=== PATIENT | female | born 1985 | race Two or more races ===

== ENCOUNTER 2024-05-23 15:24 | Inpatient (IN) | payer MEDICAID, OTHER ==
[~2024-05-23] VITALS: Ht 162.6 cm; Wt 66.0 kg
[2024-05-23] VITALS (7 sets, daily range): BP systolic 94–144; BP diastolic 53–93; PULSE 97–129; RESP 8–18; O2SAT 70–100
--- NOTE | 2024-05-23 15:32 | ED.PDOC ---
Psychiatric HPI Comments 35y F who presents to the ED for chief complaint of Overdose. Per EMS, pt was [place] down [place] for approx 20 minutes and EMS was called to the scene. EMS arrived on scene and pt was unresponsive and given 10 mg Narcan IV and pt became alert and responsive with with eyes opening. Pt fell asleep but has stable vitals with noted heart rate of 100 and o2 sat of 97% on room air upon arrival to the ED. Pt in the ED, noted to be sleeping. Pt has unknown history. Chief Complaint: overdose Time Seen by MD: 15:30 Reviewed Notes: Aircraft Avionics Technician Notes Information Source: Emergency Med Personnel Mode of Arrival: EMS Past Medical History PAST MEDICAL HISTORY: Unknown Surgical History: Unknown RN PROCEDURES History: Unknown Family History Family History: Unknown Social History Smoker: Unknown Alcohol: Unknown Drugs: Unknown Lives In: Unknown Constitutional: denies: chills, diaphoresis, fatigue, fever, malaise, sweats, weakness, others EENTM: denies: blurred vision, double vision, ear bleeding, ear discharge, ear drainage, ear pain, ear ringing, eye pain, eye redness, hearing loss, mouth pain, mouth swelling, nasal discharge, nose bleeding, nose congestion, nose pain, photophobia, tearing, throat pain, throat swelling, voice changes, others Respiratory: denies: cough, hemoptysis, orthopnea, SOB at rest, shortness of breath, SOB with excertion, stridor, wheezing, others Cardiovascular: denies: chest pain, dizzy spells, diaphoresis, Dyspnea on exertion, edema, irregular heart beat, left arm pain, lightheadedness, palpitations, PND, syncope, others Gastrointestinal: denies: abdomen distended, abdominal pain, blood streaked bowels, constipated, diarrhea, dysphagia, difficulty swallowing, hematemesis, melena, nausea, poor appetite, poor fluid intake, rectal bleeding, rectal pain, vomiting, others Genitourinary: denies: abnormal vagina bleeding, burning, dyspareunia, dysuria, flank pain, frequency, hematuria, incontinence, pain, , vagina discharge, urgency, others Neurological: denies: dizziness, fainting, headache, left sided numbness, left sided weakness, numbness, paresthesia, pre-existing deficit, right sided numbness, right sided weakness, seizure, speech problems, tingling, tremors, weakness, others Musculoskeletal: denies: back pain, gout, joint pain, joint swelling, muscle pain, muscle stiffness, neck pain, others Integumetry: denies: bruises, change in color, change in hair/nails, dryness, laceration, lesions, lumps, rash, wounds, others Allergic/Immunocompromised: denies: Difficulty Healing, Frequent Infections, Hives, Itching, others Hematologic/Lymphatic: denies: anemia, blood clots, easy bleeding, easy bruising, swollen glands, others Endocrine: denies: excessive hunger, excessive sweating, excessive thirst, excessive urination, flushing, intolerance to cold, intolerance to heat, unexplained weight gain, unexplained weight loss, others Psychiatric: denies: anxiety, bipolar disorder, depression, hopeless, panic disorder, schizophrenia, sleepless, suicidal, others All Other Systems: Reviewed and Negative Physical Exam General Appearance: Moderate Distress HEENT: Normal ENT Inspection, Pharynx Normal, TMs Normal Neck: Full Range of Motion, Non-Tender, Normal, Normal Inspection Respiratory: Chest Non-Tender, Lungs Clear, No Accessory Muscle Use, No Respiratory Distress, Normal Breath Sounds Cardiovascular: No Edema, No JVD, No Murmur, No Gallop, Normal Peripheral Pulses, Regular Rate/Rhythm Breast Exam: Deferred Gastrointestinal: Soft Genitalia: Deferred Pelvic: Deferred Rectal: Deferred Extremities: No pedal edema Musculoskeletal : Apperance: Normal Neurologic: Disoriented Cerebellar Function: NOT DONE Reflexes: NOT DONE Skin: Normal Color Peripheral Pulses: 3+ Radial (R), 3+ Radial (L) Lymphatic: No Adenopathy Was a procedure done? Was a procedure done?: No Psych Differential Dx Psych. Differential Dx: Anxiety, Depression OD Differential Dx: Drug Overdose, Accidental, Intentional, Encephalopathy, Schizophrenia, Substance Abuse, Suicidal Attempt Other Differentail Dx drug use, opioid use disorder, X-Ray, Labs, Meds, VS Patient disoriented. Possibly taken fentanyl. Narcan in the field. Mild response. Establish intravenous access. Was given fluids pain Was given Narcan. Saturation pristine on room air. 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 Psychiatric evaluation. Medical re-evaluation after more alert. Patient not responding. Intubated the patient. Time of 1ST Reevaluation: 16:00 Reevaluation 1ST: Unchanged Patient Education/Counseling: Other (pt noted sleeping, stable vitals) Family Education/Counseling: No Family Present Departure 1 Departure Time of Disposition: 15:57 Impression: Primary Impression: Metabolic encephalopathy Disposition: ADMITTED INPATIENT Admit to: Med Surg Condition: Guarded Critical Care Note Critical Care Time?: Yes (45 min-critical care time only) Stability Stability form required: No Heart Score Heart Score: Heart Score Response (Comments) Value History N/A 0 EKG N/A 0 Age N/A 0 Risk Factors N/A 0 Troponin N/A 0 Total 0 I personally scribed for ECTOR SAINI MD ([email or web address]) on 05/23/24 at 15:32. Electronically submitted by Jose Luis Garcia ([email or web address]). I personally scribed for ECTOR SAINI MD (LAVONNE) on 05/23/24 at 16:40. Electronically submitted by Ghazal Garner ([email or web address]). I personally scribed for ECTOR SAINI MD (LAVONNE) on 05/23/24 at 16:45. Electronically submitted by Ghazal Garner ([email or web address]). ECTOR SAINI MD May 23, 2024 15:32
[2024-05-23] MEDS: NALOXONE HCL 1MG/ML 2ML SYRINGE IV ONE ×2 (16:00)
[2024-05-23] MEDS: ETOMIDATE (2MG/ML) 20ML VIAL IV ONE ×2 (16:55→16:57)
[2024-05-23] MEDS: ROCURONIUM 10MG/ML 10ML VIAL IV ONE ×2 (16:55→16:58)
[2024-05-23] MEDS: MIDAZOLAM DRIP 50 mg/50mL 50 ML IV ONE ×2 (16:55)
[2024-05-23 17:05] LABS: Hematocrit 40.4 % (36.0-46.0); Hemoglobin 13.6 g/dL (12.2-16.2); Mean Corpuscular Hemoglobin 31.4 pg (28.0-32.0); Mean Corpuscular Hgb Conc. 33.6 g/dL (32.0-36.0); Mean Corpuscular Volume 93.5 fL (80.0-100.0); Platelet Count (auto) 328 10^3/uL (140-450); Red Blood Cells 4.32 10^6/uL (4.0-5.20); Red Cell Distribution Width 13.9 % (11.8-14.3); White Blood Cell 7.9 10^3/uL (4.4-10.8)
[2024-05-23 17:07] LABS: Band Neutrophils % (manual) 0; Basophils % (manual) 0 (0.0-2.0); Blast Cells 0; Metamyelocytes % 0; Myelocytes % 0; Promyelocytes % 0; Reactive Lymphocytes 0
[2024-05-23] MEDS: MIDAZOLAM DRIP 50 mg/50mL 50 ML IV SCH (17:10)
--- NOTE | 2024-05-23 17:10 | DVH ---
Exam: CT HEAD WITHOUT CONTRAST History: altered Technique: [address] images through the posterior fossa and the supratentorial compart ment were acquired without contrast and imaged using soft tissue and bone algorithms. RADIATION DOSE: DLP 1016.47 mGy.cm; CTDI vol 57.41 mGy. Comparison: None Findings: There is no evidence of an intracranial hemorrhage, acute large vessel infarct, mass effect, or midli ne shift. The calvarium, orbits, paranasal sinuses, sella, middle ears, and mastoids are unremarkable. The superficial soft tissues are within normal limits. Impression: 1. No acute intracranial abnormality.
[2024-05-23 17:11] LABS: Chloride 107 mmol/L (98-107); Sodium 141 mmol/L (136-145)
[2024-05-23 17:12] LABS: Anion Gap 10 (5-15); Carbon Dioxide 24 mmol/L (20-31)
[2024-05-23 17:13] LABS: Calcium 9.1 mg/dL (8.7-10.4)
[2024-05-23 17:18] LABS: Glucose 279 mg/dL (74-106)
--- NOTE | 2024-05-23 17:20 | DVHNC2 ---
Intubation Indication: Altered Mental Status Prep: Preoxygenation Medicated with: Other (etomidate and rocuronium) Intubation Approach: Orotracheal Notes ARIA SOUSA PRABHAKAR MD Date of Service: May 23, 2024 Billing Provider: ECTOR SAINI MD Common Visit Codes: PROCEDURE ONLY ARIA SOUSA May 23, 2024 17:20
--- NOTE | 2024-05-23 17:59 | DVH ---
CHEST RADIOGRAPH Indication:INTUBATION Technique: Single frontal view of the chest was obtained COMPARISON: None FINDINGS: Lines and Tubes: Endotracheal tube in satisfactory position. Lungs: Clear Pleura: No effusion. No pneumothorax. Cardiomediastinal contours: Unremarkable Bones: Unremarkable IMPRESSION: Endotracheal tube in satisfactory position. Air-filled distention of the stomach.
[2024-05-23 18:14] LABS: Eosinophils % (manual) 2 (0-7); Lymphocytes % (manual) 65 (10.0-50.0); Monocytes % (manual) 2 (0-12); Platelet Estimate Adequate
[2024-05-23 18:46] LABS: BUN/Creatinine Ratio 9.6 (10.0-20.0); Blood Urea Nitrogen 7 mg/dL (9-23)
[2024-05-23] MEDS: SODIUM CHLORIDE 0.9% 1,000 ML IV ONE ×2 (19:05→20:45)
--- NOTE | 2024-05-23 19:12 | DVH ---
EXAM: XY CHEST XRAY 1 VIEW CLINICAL HISTORY: IJ AND OG TUBE PLACEMENT CONFIRMATION TECHNIQUE: Single AP view of the chest WID: COMPARISON: XY CHEST PORTABLE on DOS: 05/23/24 FINDINGS: Lines and tubes: Endotracheal tube projecting 5.1 cm of the above the deloris. Right IJ central venous catheter projects over SVC. Gastric tube is seen descending beneath the level diaphragm into the sto mach and not in the field of view. Chest: The heart size and pulmonary vasculature is within normal limits. No pleural effusion, pneumothorax, or consolidation. Low lung volumes The osseous structures are grossly intact. Gas distention of the stomach. IMPRESSION: 1. Endotracheal tube , right IJ central venous catheter, and gastric tube in place as described. 2. Gas distention of the stomach.
[2024-05-23 19:26] LABS: Urine Bacteria None Seen /hpf (None Seen); Urine WBC None Seen /hpf (0 - 5)
[2024-05-23 19:39] LABS: Urine Blood Negative /uL (Negative); Urine Clarity Clear (Clear); Urine Color Colorless (Yellow); Urine Protein, UAD Negative (Negative); Urine Specific Gravity 1.006 (1.001-1.035); Urine Urobilinogen Normal (Negative); Urine pH 5.5 (5.0-9.0)
[2024-05-23 19:39] LABS: Base Excess -3.9 mmol/L (-2.0-3.0)
[2024-05-23 20:11] LABS: Amphetamine Screen, Urine Neg (NEGATIVE)
[2024-05-23 20:12] LABS: Barbiturate Scree,Urine Neg (NEGATIVE); Benzodiazephine Screen, Urine Neg (NEGATIVE); Cannabinoid Screen, Urine Neg (NEGATIVE); Cocaine Screen, Urine Neg (NEGATIVE); Opiate Scree,Urine Neg (NEGATIVE); Phencyclidine Screen, Urine Neg (NEGATIVE)
[2024-05-23] MEDS: NOREPINEPHRINE 8 MG/250ML KIT 250 ML IV ONE (20:43)
[2024-05-23] MEDS: NOREPINEPHRINE 8 MG/250ML KIT 250 ML IV SCH (21:10)
[2024-05-23] MEDS ORDERED: ONDANSETRON HCL 4 MG/2 ML VIAL IV PRN (22:15)
[2024-05-23] MEDS ORDERED: NITROGLYCERIN 0.4 MG SL TAB SL PRN (23:15)
[2024-05-23] MEDS ORDERED: MORPHINE SULFATE INJ 2 MG/ml SYRG IV PRN (23:15)
--- NOTE | 2024-05-23 23:15 | DVHHP2 ---
History of Present Illness Reason for Visit: Acute respiratory failure History of Present Illness The patient is a 35-year-old female with unknown past medical history presented to [facility] ED for evaluation of altered level of consciousness. The patient was [place] gas station for a proximally 20 minutes and EMS were called. When EMS arrived on the scene, patient was unresponsive and was given 10 mg Narcan IV with positive response and eye opening. Patient fell asleep but has stable virals en route to our facility ED. patient was seen and evaluated in the ED sleeping and was subsequently intubated, laboratory data shows WBC 7.9, platelets 328, sodium 141, potassium 4.0, BUN 7, creatinine 0.73, glucose 279, serum alcohol 553.8, blood pressure 98/53, heart rate 96, temperature 98.2 F, O2 saturation 94% on ventilator. Head CT showed no acute intracranial abnormality. Please see medication orders section in the computer. On my ass essment, patient remains fully intubated, no diaphoresis, no vomiting, no fever, no chills. Patient was admitted for further evaluation and medical management. Past Medical History EtOH Past Surgical History No past surgical history on file Family History Reviewed, noncontributory to the management of this case. Past Social History Patient was found on the street unresponsive. Review of Systems Constitutional: No: Fever, Chills, Sweats, Weakness, Malaise, Other Eyes: No: Pain, Vision change, Conjunctivae inflammation, Eyelid inflammation, Other, Redness ENT: No: Ear pain, Ear discharge, Nose pain, Nose discharge, Nose congestion, Mouth pain, Mouth swelling, Throat pain, Throat swelling, Other Respiratory: No: Cough, Dry, Shortness of breath, SOB with excertion, Wheezing, Hemoptysis, Pleuritic Pain, Sputum, Wheezing, Other Cardiovascular: No: Chest Pain, Palpitations, Orthopnea, Paroxysmal Noc. Dyspnea, Edema, Lt Headedness, Other Gastrointestinal: No: Nausea, Vomiting, Abdominal Pain, Diarrhea, Constipation, Melena, Hematochezia, Other Genitourinary: No Dysuria, No Frequency, No Incontinence, No Hematuria, No Retention, No Other Musculoskeletal: No: other, neck pain, shoulder pain, arm pain, back pain, hand pain, leg pain, foot pain Skin: No: Rash, Lesions, Jaundice, Bruising, Other Neurological: Other (Altered level of consciousness); No: Weakness, Numbness, Incoordination, Change in speech, Confusion, Seizures Allergies: Coded Allergies: NO KNOWN ALLERGIES (Unverified , 05/23/24) Medications Current Medications Medications Dose Ordered Sig/Janna Route Start Time Stop Time Status Last Admin Dose Admin Midazolam HCl 50 ml @ 1 mls/hr Q24H IV 05/23/24 19:15 05/23/24 17:10 1 MLS/HR Norepinephrine Bitartrate 250 ml @ 3.75 mls/hr Q24H IV 05/23/24 20:30 05/23/24 21:10 3.75 MLS/HR Folic Acid 1 mg/ Multivitamins 10 ml/Magnesium Sulfate 8 meq/ Thiamine HCl 100 mg/Dextrose/ Sodium Chloride 1,013.2 ml @ 125.001 mls/hr DAILY@1800 INJ 05/24/24 18:00 Acetaminophen 650 mg Q6HP PRN VA 05/23/24 22:15 Ondansetron HCl 4 mg Q4HP PRN IV 05/23/24 22:15 Enoxaparin Sodium 40 mg DAILY SC 05/24/24 10:00 Exam Vital Signs Vital Signs Date Time Temp Pulse Resp B/P (MAP) Pulse Ox O2 Delivery O2 Flow Rate FiO2 05/23/24 22:45 104 17 112/60 (77) 99 05/23/24 22:31 50 05/23/24 19:05 Mechanical Ventilator+ 05/23/24 18:47 98.2 05/23/24 16:40 6 General Appearance: Other (Fully intubated) HEENT: Atraumatic, PERRLA, EOMI, Mucous membr. moist/pink Respiratory: Normal air movement Cardiovascular: Regular rate, Normal S1, Normal S2, No murmurs Abdominal: Normal bowel sounds, Soft, No tenderness, No hepatospenomegaly, No masses Extremities: No clubbing, No cyanosis, No edema, Normal pulses, No tenderness/swelling Skin: No rashes, No breakdown, No significant lesion Neuro: Other (Generalized weakness) Psych/Mental Status: Mood NL Labs/Xrays Labs Test 05/23/24 19:10 05/23/24 18:26 05/23/24 16:23 Range/Units Urine Color Colorless Yellow Urine Clarity Clear Clear Urine pH 5.5 5.0-9.0 Urine Specific [place] 1.006 1.001-1.035 Urine Protein Negative Negative Urine Ketones Negative Negative Urine Blood Negative Negative /uL Urine Nitrite Negative Negative Urine Bilirubin Negative Negative Urine Urobilinogen Normal Negative mg/dL Urine Leukocyte Esterase Negative Negative /uL Urine RBC <1 0 - 4 /hpf Urine WBC None seen 0 - 5 /hpf Urine Squamous Epithelial Cells None seen <5 /hpf Urine Bacteria None seen None Seen /hpf Urine Glucose 4+ H Normal mg/dL Urine Opiates Screen Neg NEGATIVE Urine Fentanyl Screen Neg NEGATIVE Urine Barbiturates Screen Neg NEGATIVE Urine Phencyclidine Screen Neg NEGATIVE Urine Amphetamines Screen Neg NEGATIVE Urine Benzodiazepines Screen Neg NEGATIVE Urine Cocaine Screen Neg NEGATIVE Urine Cannabinoids Screen Neg NEGATIVE Blood Gas Specimen Type Arterial Blood Gas Sample Site Right radial Blood Gas Patient Temperature 37.0 Arterial Blood Date Drawn [id number] Arterial Blood pH 7.321 L 7.350-7.450 Arterial Blood Partial Pressure CO2 43.9 32.0-45.0 mmHg Arterial Blood Partial Pressure O2 202.8 H 83.0-108.0 mmHg Arterial Blood HCO3 22.2 21.0-28.0 mmol/L Arterial Blood Oxygen Saturation 99.5 H 94.0-98.0 % Arterial Blood Base Excess -3.9 L -2.0-3.0 mmol/L Arterial Blood Oxyhemoglobin 98.0 94.0-98.0 % Arterial Blood Carboxyhemoglobin 0.7 0.5-1.5 % Arterial Blood Methemoglobin 0.8 0.0-1.5 % Aravind Test Yes Blood Gas Total Hemoglobin 14.80 12.0-16.0 g/dL Blood Gas Set Respiration Rate 16.0 Blood Gas Modality Vent - ac FiO2 % 100.0 Blood Gas Tidal Volume 450.0 Blood Gas PEEP or CPAP 5.0 White Blood Count 7.9 4.4-10.8 10^3/uL Red Blood Count 4.32 4.0-5.20 10^6/uL Hemoglobin 13.6 12.2-16.2 g/dL Hematocrit 40.4 36.0-46.0 % Mean Corpuscular Volume 93.5 80.0-100.0 fL Mean Corpuscular Hemoglobin 31.4 28.0-32.0 pg Mean Corpuscular Hemoglobin Concent 33.6 32.0-36.0 g/dL Red Cell Distribution Width 13.9 11.8-14.3 % Platelet Count 328 140-450 10^3/uL Mean Platelet Volume 8.7 6.9-10.8 fL Neutrophils (%) (Auto) 37.0-80.0 % Lymphocytes (%) (Auto) 10.0-50.0 % Monocytes (%) (Auto) 0.0-12.0 % Basophils (%) (Auto) 0.0-2.0 % Neutrophils # (Auto) 1.6-8.6 10 ^3/uL Lymphocytes # (Auto) 0.4-5.4 10 ^3/uL Monocytes # (Auto) 0-1.3 10 ^3/uL Differential Total Cells Counted 100.0 100 Neutrophils % (Manual) 31 L 37.0-80.0 Band Neutrophils % (Manual) 0 Lymphocytes % (Manual) 65 H 10.0-50.0 Monocytes % (Manual) 2 0-12 Eosinophils % (Manual) 2 0-7 Basophils % (Manual) 0 0.0-2.0 Metamyelocytes % (manual) 0 Myelocytes % (Manual) 0 Promyelocytes % (Manual) 0 Blast Cells % (Manual) 0 Reactive Lymphocytes 0 Platelet Estimate Adequate Sodium Level 141 136-145 mmol/L Potassium Level 4.0 3.5-5.1 mmol/L Chloride Level 107 98-107 mmol/L Carbon Dioxide Level 24 20-31 mmol/L Anion Gap 10 5-15 Blood Urea Nitrogen 7 L 9-23 mg/dL Creatinine 0.73 0.550-1.02 mg/dL Glomerular Filtration Rate Calc 111 >90 mL/min BUN/Creatinine Ratio 9.6 L 10.0-20.0 Serum Glucose 279 H 74-106 mg/dL Calcium Level 9.1 8.7-10.4 mg/dL Plasma/Serum Blood Alcohol 553.8 *H <10 mg/dL PATIENT: JULIA HALL ACCT: [id number] UNIT: [id number] : 05/23/1989 LOC: ER ROOM / BED: / AGE / SEX: 35 / F ADM STATUS: REG ER SERVICE 1600 ORDERING PHYSICIAN: ECTOR SAINI MD PROCEDURE(s): HWOCT - HEAD WITHOUT CONTRAST REASON: altered ORDER NUMBER(s): [id number], ACCESSION NUMBER(s): [id number] Exam: CT HEAD WITHOUT CONTRAST History: altered Technique: [address] images through the posterior fossa and the supratentorial compartment were acquired without contrast and imaged using soft tissue and bone algorithms. RADIATION DOSE: DLP 1016.47 mGy.cm; CTDI vol 57.41 mGy. Comparison: None Findings: There is no evidence of an intracranial hemorrhage, acute large vessel infarct, mass effect, or midline shift. The calvarium, orbits, paranasal sinuses, sella, middle ears, and mastoids are unremarkable. The superficial soft tissues are within normal limits. Impression: 1. No acute intracranial abnormality. ORDERING PHYSICIAN: ECTOR SAINI MD PROCEDURE(s): CXRP - CHEST PORTABLE REASON: INTUBATION ORDER NUMBER(s): [id number], ACCESSION NUMBER(s): [id number] CHEST RADIOGRAPH Indication:INTUBATION Technique: Single frontal view of the chest was obtained COMPARISON: None FINDINGS: Lines and Tubes: Endotracheal tube in satisfactory position. Lungs: Clear Pleura: No effusion. No pneumothorax. Cardiomediastinal contours: Unremarkable Bones: Unremarkable IMPRESSION: Endotracheal tube in satisfactory position. Air-filled distention of the stomach. ORDERING PHYSICIAN: ECTOR SAINI MD PROCEDURE(s): CXR1 - CHEST XRAY 1 VIEW REASON: IJ AND OG TUBE PLACEMENT CONFIRMATION ORDER NUMBER(s): [id number], ACCESSION NUMBER(s): [id number] EXAM: XY CHEST XRAY 1 VIEW CLINICAL HISTORY: IJ AND OG TUBE PLACEMENT CONFIRMATION TECHNIQUE: Single AP view of the chest WID: COMPARISON: XY CHEST PORTABLE on DOS: 05/23/24 FINDINGS: Lines and tubes: Endotracheal tube projecting 5.1 cm of the above the deloris. Right IJ central venous catheter projects over SVC. Gastric tube is seen descen ding beneath the level diaphragm into the stomach and not in the field of view. Chest: The heart size and pulmonary vasculature is within normal limits. No pleural effusion, pneumothorax, or consolidation. Low lung volumes The osseous structures are grossly intact. Gas distention of the stomach. IMPRESSION: 1. Endotracheal tube , right IJ central venous catheter, and gastric tube in place as described. 2. Gas distention of the stomach. Assessment/Plan Assessment/Plan Metabolic encephalopathy Generalized weakness Hyperglycemia Acute respiratory failure Alcohol intoxication Altered level of consciousness Plan 1. Admit to intensive care unit 2. Breathing treatment 3. Pain control management 4. Management of fluids and electrolytes 5. Consultation for pulmonology 6. Diagnostic tests head CT 7. DVT prophylaxis on SCDs 8. Repeat labs CBC, CMP in a.m. 9. Continue with current medical management 10. Treatment plan discussed with patient and RN. Patient is fully intubated. Plan discussed with: Patient, Other (RN) My Orders Orders - NENA ART DNP Procedure Category Date Status Time * Cardiology Consult CONS 05/23/24 Transmitted 22:07 *Consult CONS 05/23/24 Transmitted / 22:07 Folic Acid... PHA 05/24/24 In Process 18:00 Acetaminophen PHA 05/23/24 In Process Suppository (Tylenol 22:15 Allergies YASMIN 05/23/24 In Process 22:07 Code Status CODE 05/23/24 Transmitted 22:07 Oxygen Per Hour RT 05/23/24 Transmitted 22:07 Ondansetron Hcl PHA 05/23/24 In Process (Zofran) 22:15 Enoxaparin Sodium PHA 05/24/24 In Process (Lovenox) 10:00 Fall Risk Precautions YASMIN 05/23/[address] 22:07 Complete Blood Count LAB 05/24/24 Verified 04:00 Comprehensive LAB 05/24/24 Verified Metabolic Panel 04:00 Npo (Nothing By DIET 05/24/24 Transmitted Mouth) Diet Breakfast Condition: Serious YASMIN 05/23/24 In Process 22:07 Sequential YASMIN 05/23/24 In Process Compression Device Problem List: (1) Metabolic encephalopathy (2) Hyperglycemia (3) Acute respiratory failure (4) Alcohol intoxication (5) Generalized weakness (6) Altered level of consciousness Date of Service: May 23, 2024 Billing Provider: NENA ART DNP Common Visit Codes: [id number] INP/OBS CARE (HIGH) NENA ART DNP May 23, 2024 23:15
[2024-05-24] VITALS (94 sets, daily range): BP systolic 100–148; BP diastolic 52–85; PULSE 88–117; RESP 14–25; TEMP 97.5–102.4; O2SAT 90–100
[2024-05-24] MEDS: fentaNYL Drip 2500mCg/250mlNS 250 ML IV ONE (03:57)
[2024-05-24] MEDS: fentaNYL Drip 2500mCg/250mlNS 250 ML IV SCH (03:57)
[2024-05-24 04:15] LABS: Basophils # (auto) 0.1 10 ^3/uL (0-0.2); Basophils % (auto) 0.5 % (0.0-2.0); Eosinophils # (auto) 0 10 ^3/uL (0-0.8); Eosinophils % (auto) 0.1 % (0.0-7.0); Hemoglobin 13.4 g/dL (12.2-16.2); Lymphocytes # (auto) 3.1 10 ^3/uL (0.4-5.4); Lymphocytes % (auto) 14.8 % (10.0-50.0); Mean Corpuscular Hemoglobin 31.4 pg (28.0-32.0); Mean Corpuscular Hgb Conc. 33.5 g/dL (32.0-36.0); Monocytes % (auto) 4.9 % (0.0-12.0); Neutrophils # (auto) 16.8 10 ^3/uL (1.6-8.6); Neutrophils % (auto) 79.7 % (37.0-80.0); Platelet Count (auto) 337 10^3/uL (140-450); Red Blood Cells 4.26 10^6/uL (4.0-5.20); Red Cell Distribution Width 14.3 % (11.8-14.3)
[2024-05-24 04:24] LABS: Alanine Aminotransferase 16 U/L (7-40); Albumin 4.1 g/dL (3.2-4.8); Alkaline Phosphatase 76 U/L (46-116); Anion Gap 11 (5-15); Aspartate Aminotransferase 18 U/L (13-40); Calcium 8.2 mg/dL (8.7-10.4); Carbon Dioxide 22 mmol/L (20-31); Chloride 110 mmol/L (98-107); Glucose 343 mg/dL (74-106); Sodium 143 mmol/L (136-145)
[2024-05-24 04:25] LABS: Bilirubin, Total 0.4 mg/dL (0.2-1.0); Total Protein 6.8 g/dL (5.7-8.2)
[2024-05-24 04:37] LABS: BUN/Creatinine Ratio 6.9 (10.0-20.0); Blood Urea Nitrogen < 5 mg/dL (9-23)
[2024-05-24] MEDS: ACETAMINOPHEN 650 MG RECT SUPP PR PRN (04:57)
[2024-05-24 07:30] LABS: Base Excess -5.6 mmol/L (-2.0-3.0)
[2024-05-24] MEDS ORDERED: DEXTROSE (50%) 50ML SYRG IV PRN (08:30)
[2024-05-24] MEDS: InsuLIN REG 1unit/0.01ml Soln (100units/ml) SC SCH (08:30)
[2024-05-24 08:39] LABS: Magnesium 1.5 mg/dL (1.6-2.6)
[2024-05-24 08:41] LABS: Phosphorus 3.5 mg/dL (2.4-5.1)
[2024-05-24] MEDS: MAGNESIUM SULFATE 1GM/100ML 100 ML IV SCH (10:00)
[2024-05-24] MEDS: ENOXAPARIN SOD 40 MG/0.4 ML SYRINGE SC SCH (10:01)
[2024-05-24 11:25] LABS: INR 1.11 (0.9-1.15); Partial Thromboplastin Time 25.9 SEC (24.5-34.5); Prothrombin Time 11.7 sec (9.3-11.8)
[2024-05-24 11:41] LABS: Lactic Acid w/Reflex 4.1 mmol/L (0.4-2.0)
[2024-05-24] MEDS: ACCU-CHEK COMFORT CURVE STRIP VI SCH (12:00)
--- NOTE | 2024-05-24 14:06 | DVHSR ---
APPROVED REPORT EXAM: Two-dimensional and M-mode echocardiogram with Doppler and color Doppler. Blood Pressure: 103/59 mmHg INDICATION Hypotension RISK FACTORS Height: 5' 4", Weight: 149 DIMENSIONS LVDd4.0 (3.8-5.7cm)LA (2D)3.2 (1.9-4.0cm)Aortic Root2.6 (2.0-3.7cm) LVDs2.7 (2.5-4.0cm)LA (MM) (1.9-4.0cm)Aortic Cusp Exc1.6 (1.5-2.0cm) EF (%) 62.0 (55-70%)Rt. Atrium3.2 (1.9-4.0cm)Asc. Aorta cm IVSd0.9 (0.7-1.1cm)RV (D) (1.8-2.4cm) PWd0.8 (0.7-1.1cm) Mitral Valve MitralMitral Stenosis E wave0.70m/sMV Mean GR.mmHg A wave0.60m/sMV Peak GR.mmHg E/A ratio1.22D MVAcm2 Aortic Valve Aortic ValveAortic Stenosis V11.00m/Jeremías Mean GR.4mmHg V21.40m/Jeremías Peak GR.9mmHg LVOT Diameter2.0 (1.8-2.4cm)Doppler AVA2.24cm2 Pulmonic Valve V20.70m/s Conclusion Normal left ventricular size and dimension. Normal left ventricular systolic function estimated ejec tion fraction 55%. Normal diastolic function Normal right ventricular size and dimension. Normal right ventricular systolic function. Normal biatrial size and dimension. Normal aortic valve structure and function. Normal mitral valve structure and function. Normal tricuspid valve structure and function. The pulmonary valve is grossly normal. No pericardial effusion.
[2024-05-24] MEDS: PIPERACILLIN-TAZOB 3.375GM 100 ML IV SCH (14:55)
[2024-05-24] MEDS: SODIUM CHLORIDE 0.9% 1,000 ML IV SCH (14:56)
--- NOTE | 2024-05-24 17:06 | DVHPN2 ---
Subjective The patient is a 35-year-old female with unknown past medical history presented to [facility] ED for evaluation of altered level of consciousness. The patient [place] station for a proximally 20 minutes and EMS were called. When EMS arrived on the scene, patient was unresponsive and was given 10 mg Narcan IV with positive response and eye opening. Patient fell asleep but has stable virals en route to our facility ED. patient was seen and evaluated in the ED sleeping and was subsequently intubated, laboratory data shows WBC 7.9, platelets 328, sodium 141, potassium 4.0, BUN 7, creatinine 0.73, glucose 279, serum alcohol 553.8, blood pressure 98/53, heart rate 96, temperature 98.2 F, O2 saturation 94% on ventilator. Head CT showed no acute intracranial abnormality. Please see medication orders section in the computer. On my assessment, patient remains fully intubated, no diaphoresis, no vomiting, no fever, no chills. Patient was admitted for further evaluation and medical management. remains intubated in ICU per nurse had elevated lactic acid this morning Changes from previous H/P or p: No Changes Eyes: No Pain, No Vision change, No Conjunctivae inflammation, No Eyelid inflammation, No Other, No Redness ENT: No Ear pain, No Ear discharge, No Nose pain, No Nose discharge, No Nose congestion, No Mouth pain, No Mouth swelling, No Throat pain, No Throat swelling, No Other Cardiovascular: No Chest Pain, No Palpitations, No Orthopnea, No Paroxysmal Noc. Dyspnea, No Edema, No Lt Headedness, No Other Respiratory: No Cough, No Dry, No Shortness of breath, No SOB with excertion, No Wheezing, No Hemoptysis, No Pleuritic Pain, No Sputum, No Other Gastrointestinal: No Nausea, No Vomiting, No Abdominal Pain, No Diarrhea, No Constipation, No Melena, No Hematochezia, No Other Genitourinary: No Dysuria, No Frequency, No Incontinence, No Hematuria, No Retention, No Other Musculoskeletal: No other, No neck pain, No shoulder pain, No arm pain, No back pain, No hand pain, No leg pain, No foot pain Skin: No Rash, No Lesions, No Jaundice, No Bruising, No Other Objective Vitals Vital Signs Date Time Temp Pulse Resp B/P (MAP) Pulse Ox O2 Delivery O2 Flow Rate FiO2 10/26/24 16:54 123/80 05/24/24 16:00 99.9 98 17 96 211.8 05/24/24 16:00 40 05/24/24 08:00 Mechanical Ventilator+ 05/23/24 16:40 6 Intake/Output Intake and Output 05/24/24 05:00 Intake Total 193.75 ml Balance 193.75 ml Intake IV Total 193.75 ml Medications Current Medications Medications Dose Ordered Sig/Janna Route Start Time Stop Time Status Last Admin Dose Admin Midazolam HCl 50 ml @ 1 mls/hr Q24H IV 05/23/24 19:15 05/24/24 16:54 15 MLS/HR Norepinephrine Bitartrate 250 ml @ 3.75 mls/hr Q24H IV 05/23/24 20:30 05/23/24 21:10 3.75 MLS/HR Folic Acid 1 mg/ Multivitamins 10 ml/Magnesium Sulfate 8 meq/ Thiamine HCl 100 mg/Dextrose/ Sodium Chloride 1,013.2 ml @ 125.001 mls/hr DAILY@1800 INJ 05/24/24 18:00 Acetaminophen 650 mg Q6HP PRN MN 05/23/24 22:15 05/24/24 04:57 650 MG Ondansetron HCl 4 mg Q4HP PRN IV 05/23/24 22:15 Enoxaparin Sodium 40 mg DAILY SC 05/24/24 10:00 05/24/24 10:01 40 MG Nitroglycerin 0.4 mg Q5MINP PRN SL 05/23/24 23:15 Morphine Sulfate 2 mg Q30M PRN IV 05/23/24 23:15 Fentanyl Citrate 250 ml @ 2.5 mls/hr Q24H IV 05/24/24 04:00 05/24/24 03:57 2.5 MLS/HR Diagnostic Test (Pha) 1 strip Q6HR 05/24/24 12:00 05/24/24 12:00 1 STRIP Insulin Human Regular Q6HR SC 05/24/24 08:30 05/24/24 12:45 8 UNITS Dextrose 50 ml UD PRN IV 05/24/24 08:30 Sodium Chloride 1,000 ml @ 150 mls/hr Q6H40M IV 05/24/24 12:45 05/24/24 14:56 150 MLS/HR Piperacillin Sod/ Tazobactam Sod 100 ml @ 25 mls/hr Q8HR IV 05/24/24 14:00 05/24/24 14:55 25 MLS/HR Laboratory Results Laboratory Tests 05/24/24 03:34 Chemistry Test 05/24/24 03:34 05/24/24 03:44 Albumin 4.1 g/dL (3.2-4.8) Calcium Level 8.2 mg/dL (8.7-10.4) L Total Protein 6.8 g/dL (5.7-8.2) Magnesium Level 1.5 mg/dL (1.6-2.6) L Phosphorus Level 3.5 mg/dL (2.4-5.1) Coagulation Test 05/24/24 10: Prothrombin Time 11.7 sec (9.3-11.8) Prothrombin Time INR 1.11 (0.9-1.15) Activated Partial Thromboplast Time 25.9 SEC (24.5-34.5) Lipid panel Test 05/24/24 03:44 Cholesterol Level 238 mg/dL (< 200) H HDL Cholesterol 56 mg/dL (40-59) Triglycerides Level 376 mg/dL (< 150) H Cardiac Markers Test 05/24/24 03:44 B-Type Natriuretic Peptide 6.89 pg/mL (0-100) LFT Test 05/24/24 03:34 Alanine Aminotransferase (ALT) 16 U/L (7-40) Alkaline Phosphatase 76 U/L (46-116) Aspartate Amino Transferase (AST) 18 U/L (13-40) Total Bilirubin 0.4 mg/dL (0.2-1.0) HgA1c, TSH Test 05/24/24 03:44 Thyroid Stimulating Hormone (TSH) 0.70 uIU/mL (0.55-4.78) Urinalysis Test 05/23/24 19:10 Urine Color Colorless (Yellow) Urine Clarity Clear (Clear) Urine pH 5.5 (5.0-9.0) Urine Specific [place] 1.006 (1.001-1.035) Urine Protein Negative (Negative) Urine Ketones Negative (Negative) Urine Blood Negative /uL (Negative) Urine Nitrite Negative (Negative) Urine Bilirubin Negative (Negative) Urine Urobilinogen Normal mg/dL (Negative) Urine Leukocyte Esterase Negative /uL (Negative) Urine RBC <1 /hpf (0 - 4) Urine WBC None seen /hpf (0 - 5) Urine Squamous Epithelial Cells None seen /hpf (<5) Urine Bacteria None seen /hpf (None Seen) Urine Glucose 4+ mg/dL (Normal) H Blood Gas Results Test 05/23/24 18:26 05/24/24 07:13 Arterial Blood pH 7.321 (7.350-7.450) 7.329 (7.350-7.450) FiO2 % 100.0 40.0 Microbiology Microbiology Date/Time Source Procedure Growth Status 05/24/24 04:30 Nose MRSA Screen - Final Complete Assessment/Plan Assessment/Plan Metabolic encephalopathy Generalized weakness Hyperglycemia Acute respiratory failure Alcohol intoxication Altered level of consciousness Plan sepsis workup including blood, and urine cx IV zosyn monitor labs daily vent management per ICU Critical care time including discussion with providers, nursing and patient care is 50 minutes Plan discussed with: Spouse My Orders Orders - ROSHAN RUIZ MD Procedure Category Date Status Time Glucose Blood PHA 05/24/24 In Process (Accu-Chek Comfort 12:00 Insulin R (Human) PHA 05/24/24 In Process (Insulin R) 08:30 Dextrose 50% Syringe PHA 05/24/24 In Process 08:30 Lactic Acid W/ Reflex LAB 05/25/24 Verified Order 04:00 Blood Culture AAMIR 05/24/24 In Process 12:32 Urine Bacterial AAMIR 05/24/24 In Process Culture 15:11 Sodium Chloride 0.9% PHA 05/24/24 In Process 12:45 Piperacillin-Tazob PHA 05/24/24 In Process 3.375gm (Zosyn 3.375g 14:00 Date of Service: May 24, 2024 Billing Provider: ROSHAN RUIZ MD Common Visit Codes: [id number] CARE 30-74 MIN ROSHAN RUIZ MD May 24, 2024 17:05
--- NOTE | 2024-05-24 18:01 | DVHINCON2 ---
Date Seen: May 24, 2024 Referring Physician Deric Bloom NP Reason for Consultation Hypotension History of Present Illness Catherine Guerrero is a 39-year-old female patient who presents to the ED via EMS after being found unresponsive and gas station (patient was immediately intubated in ED. Could not obtain review of systems, obtained past medical history from father who is at bedside. Past medical history: Diabetes, hypertension, two previous admissions due to alcohol intoxication viral has never been intubated. Surgical history: Denies Family history: Mother had diabetes and sudden cardiac at age of 52 Social history: Lives with family in [place]. She is a heavy ethanol abuser, goes through binges (had stopped drinking for the last two months). Denies tobacco and other drug abuse Allergies: Denies Home medication: Metformin and antihypertensive medication which father can not recall Patient seen and examined at bedside. Could not obtain review of systems since patient is under sedation due to mechanical ventilation. Past Medical History Per HPI Past Surgical History Per HPI Family History: FH: cholecystectomy G8 FATHER FH: diabetes mellitus G8 MOTHER Tonsillitis G8 FATHER Family History Per HPI Social History Per HPI Allergies: Coded Allergies: NO KNOWN ALLERGIES (Unverified , 05/23/24) Home Meds Unable to Obtain Active Prescriptions or Reported Meds Current Medications Current Medications Medications (Trade) Dose Ordered Sig/Janna Route PRN Reason Start Time Stop Time Status Last Admin Midazolam HCl 50 ml @ 1 mls/hr Q24H IV 05/23/24 19:15 05/24/24 16:54 Norepinephrine Bitartrate 250 ml @ 3.75 mls/hr Q24H IV 05/23/24 20:30 05/23/24 21:10 Folic Acid 1 mg/ Multivitamins 10 ml/Magnesium Sulfate 8 meq/ Thiamine HCl 100 mg/Dextrose/ Sodium Chloride 1,013.2 ml @ 125.001 mls/hr DAILY@1800 INJ 05/24/24 18:00 Acetaminophen (Tylenol Suppository) 650 mg Q6HP PRN [place] PAIN SCALE 1-3 OR TEMP>100.4 05/23/24 22:15 05/24/24 17:08 Ondansetron HCl (Zofran) 4 mg Q4HP PRN IV NAUSEA / VOMITING 05/23/24 22:15 Enoxaparin Sodium (Lovenox) 40 mg DAILY SC 05/24/24 10:00 05/24/24 10:01 Nitroglycerin (Ntrostat Sublingual) 0.4 mg Q5MINP PRN SL FOR CHEST PAIN 05/23/24 23:15 Morphine Sulfate 2 mg Q30M PRN IV FOR CHEST PAIN 05/23/24 23:15 Fentanyl Citrate 250 ml @ 2.5 mls/hr Q24H IV 05/24/24 04:00 05/24/24 03:57 Diagnostic Test (Pha) (Accu-Chek Comfort Curve T) 1 strip Q6HR 05/24/24 12:00 05/24/24 12:00 Insulin Human Regular (InsuLIN R) Q6HR SC 05/24/24 08:30 05/24/24 12:45 Dextrose 50 ml UD PRN IV Blood Sugar LESS THAN 60 05/24/24 08:30 Magnesium Sulfate/ Dextrose 100 ml @ 100 mls/hr Q1HR IV 05/24/24 10:00 05/24/24 11:59 DC 05/24/24 12:39 Sodium Chloride 1,000 ml @ 150 mls/hr Q6H40M IV 05/24/24 12:45 05/24/24 14:56 Piperacillin Sod/ Tazobactam Sod 100 ml @ 25 mls/hr Q8HR IV 05/24/24 14:00 05/24/24 14:55 Review of Systems Per HPI Vital Signs Vital Signs Date Time Temp Pulse Resp B/P (MAP) Pulse Ox O2 Delivery O2 Flow Rate FiO2 05/24/24 17:15 100.8 114 17 144/81 (102) 94 213.4 05/24/24 16:00 40 05/24/24 08:00 Mechanical Ventilator+ 05/23/24 16:40 6 Physical Exam Patient lying in bed, under sedoanalgesia due to mechanical ventilation General: RASS -1, afebrile, mucosae are moist Cardiovascular: Normal S1 and S2. No murmurs, gallops or rubs Respiratory: Mechanically assisted ventilation, equal bilateral airway entree. Clear lung sounds on auscultation Abdomen: Soft, nontender, no organomegaly, normal bowel sounds MSK/skin: Mobilization of limbs cannot be evaluated. Skin is dry and warm Neurological: Orientation cannot be assessed. No apparent motor no sensitive deficits. Pupils are isocoric and reactive Labs/Diagnostic Data Labs Test 05/24/24 16:58 05/24/24 13:41 05/24/24 10:26 05/24/24 07:13 Range/Units POC Glucose 124 H 70-106 mg/dl Lactic Acid Level 4.3 *H 0.4-2.0 mmol/L Prothrombin Time 11.7 9.3-11.8 sec Prothrombin Time INR 1.11 0.9-1.15 Activated Partial Thromboplast Time 25.9 24.5-34.5 SEC Ammonia < 10 L 11-32 umol/L Troponin I High Sensitivity 11 </=34 ng/L Blood Gas Specimen Type Arterial Blood Gas Sample Site Right radial Blood Gas Patient Temperature 37.0 Arterial Blood Date Drawn [id number] Arterial Blood pH 7.329 L 7.350-7.450 Arterial Blood Partial Pressure CO2 38.5 32.0-45.0 mmHg Arterial Blood Partial Pressure O2 94.2 83.0-108.0 mmHg Arterial Blood HCO3 19.8 L 21.0-28.0 mmol/L Arterial Blood Oxygen Saturation 96.7 94.0-98.0 % Arterial Blood Base Excess -5.6 L -2.0-3.0 mmol/L Arterial Blood Oxyhemoglobin 96.2 94.0-98.0 % Arterial Blood Carboxyhemoglobin 0.1 L 0.5-1.5 % Arterial Blood Methemoglobin 0.4 0.0-1.5 % Aravind Test Modified Blood Gas Total Hemoglobin 15.50 12.0-16.0 g/dL Blood Gas Set Respiration Rate 16.0 Blood Gas Modality Vent - ac Blood Gas Spontaneous Rate 19 FiO2 % 40.0 Blood Gas Tidal Volume 450.0 Blood Gas Inspiratory Pressure 21.0 Blood Gas PEEP or CPAP 5.0 Bl Gas Inspiratory/Expiratory Ratio 1:2.2 Specimen Drawn By dorys rt Test 05/24/24 03:44 05/24/24 03:34 05/23/24 19:10 05/23/24 16:23 Range/Units Phosphorus Level 3.5 2.4-5.1 mg/dL Magnesium Level 1.5 L 1.6-2.6 mg/dL B-Type Natriuretic Peptide 6.89 0-100 pg/mL Triglycerides Level 376 H < 150 mg/dL Cholesterol Level 238 H < 200 mg/dL LDL Cholesterol 135 H < 100 mg/dL HDL Cholesterol 56 40-59 mg/dL Vitamin B12 Level 359 211-911 pg/mL Vitamin D 25-Hydroxy 37.2 30.0-100 ng/mL Thyroid Stimulating Hormone (TSH) 0.70 0.55-4.78 uIU/mL White Blood Count 21.0 #H 4.4-10.8 10^3/uL Red Blood Count 4.26 4.0-5.20 10^6/uL Hemoglobin 13.4 12.2-16.2 g/dL Hematocrit 40.0 36.0-46.0 % Mean Corpuscular Volume 94.0 80.0-100.0 fL Mean Corpuscular Hemoglobin 31.4 28.0-32.0 pg Mean Corpuscular Hemoglobin Concent 33.5 32.0-36.0 g/dL Red Cell Distribution Width 14.3 11.8-14.3 % Platelet Count 337 140-450 10^3/uL Mean Platelet Volume 8.6 6.9-10.8 fL Neutrophils (%) (Auto) 79.7 37.0-80.0 % Lymphocytes (%) (Auto) 14.8 10.0-50.0 % Monocytes (%) (Auto) 4.9 0.0-12.0 % Eosinophils (%) (Auto) 0.1 0.0-7.0 % Basophils (%) (Auto) 0.5 0.0-2.0 % Neutrophils # (Auto) 16.8 H 1.6-8.6 10 ^3/uL Lymphocytes # (Auto) 3.1 0.4-5.4 10 ^3/uL Monocytes # (Auto) 1.0 0-1.3 10 ^3/uL Eosinophils # (Auto) 0 0-0.8 10 ^3/uL Basophils # (Auto) 0.1 0-0.2 10 ^3/uL Nucleated Red Blood Cells 0.0 % Sodium Level 143 136-145 mmol/L Potassium Level 4.0 3.5-5.1 mmol/L Chloride Level 110 H 98-107 mmol/L Carbon Dioxide Level 22 20-31 mmol/L Anion Gap 11 5-15 Blood Urea Nitrogen < 5 L 9-23 mg/dL Creatinine 0.72 0.550-1.02 mg/dL Glomerular Filtration Rate Calc 110 >90 mL/min BUN/Creatinine Ratio 6.9 L 10.0-20.0 Serum Glucose 343 H 74-106 mg/dL Calcium Level 8.2 L 8.7-10.4 mg/dL Total Bilirubin 0.4 0.2-1.0 mg/dL Aspartate Amino Transferase (AST) 18 13-40 U/L Alanine Aminotransferase (ALT) 16 7-40 U/L Alkaline Phosphatase 76 46-116 U/L Total Protein 6.8 5.7-8.2 g/dL Albumin 4.1 3.2-4.8 g/dL Urine Color Colorless Yellow Urine Clarity Clear Clear Urine pH 5.5 5.0-9.0 Urine Specific [place] 1.006 1.001-1.035 Urine Protein Negative Negative Urine Ketones Negative Negative Urine Blood Negative Negative /uL Urine Nitrite Negative Negative Urine Bilirubin Negative Negative Urine Urobilinogen Normal Negative mg/dL Urine Leukocyte Esterase Negative Negative /uL Urine RBC <1 0 - 4 /hpf Urine WBC None seen 0 - 5 /hpf Urine Squamous Epithelial Cells None seen <5 /hpf Urine Bacteria None seen None Seen /hpf Urine Glucose 4+ H Normal mg/dL Urine Opiates Screen Neg NEGATIVE Urine Fentanyl Screen Neg NEGATIVE Urine Barbiturates Screen Neg NEGATIVE Urine Phencyclidine Screen Neg NEGATIVE Urine Amphetamines Screen Neg NEGATIVE Urine Benzodiazepines Screen Neg NEGATIVE Urine Cocaine Screen Neg NEGATIVE Urine Cannabinoids Screen Neg NEGATIVE Differential Total Cells Counted 100.0 100 Neutrophils % (Manual) 31 L 37.0-80.0 Band Neutrophils % (Manual) 0 Lymphocytes % (Manual) 65 H 10.0-50.0 Monocytes % (Manual) 2 0-12 Eosinophils % (Manual) 2 0-7 Basophils % (Manual) 0 0.0-2.0 Metamyelocytes % (manual) 0 Myelocytes % (Manual) 0 Promyelocytes % (Manual) 0 Blast Cells % (Manual) 0 Reactive Lymphocytes 0 Platelet Estimate Adequate Hemoglobin A1c 7.1 H <5.7 % A1C Plasma/Serum Blood Alcohol 553.8 *H <10 mg/dL Microbiology Date/Time Source Procedure Growth Status 05/24/24 04:30 Nose MRSA Screen - Final Complete Assessment Toxic encephalopathy Ethanol abuse Septic shock probably secondary to aspiration pneumonia Diabetes Hypertension Noncompliance Simple hyperglycemia (anion gap within normal limits) Plan/Recommendation Patient hypotension probably secondary to intoxication with ethanol and septic shock probably secondary to aspiration pneumonia. Echocardiogram: LVEF 55%, normal diastolic function, rest of echocardiogram within normal limits Troponin and BNP are negative Currently patient is without any IV vasopressors. IV antibiotics per hospitalist Replenish electrolytes, continue with banana bag, monitor hyperglycemia Discussed case with Dr. Wong, family and nurses: Hypotension likely secondary to septic shock due to probable aspiration pneumonia. Currently patient is with no IV vasopressors. Cardiological workup head was within normal limits. No need of any interventional cardiological workup at this time, we will sign off the case. Please reconsult if needed, thank you. Plan discussed with: Patient, Other (Father and nurses) Date of Service: May 24, 2024 Billing Provider: ROSALEE WONG MD Cardiology Common Codes: [id number] INP/OBS CARE (High), [id number] CARE 30-74 MIN ABIGAIL JOSEPH RESIDENT May 24, 2024 18:01
[2024-05-24] MEDS: FOLIC ACID 1 MG, MULTIPLE VITAMIN 10 ML, MAGNESIUM SULF SDV 50% 8 MEQ, THIAMINE INJ 100... INJ SCH (18:02)
[2024-05-25] VITALS (108 sets, daily range): BP systolic 89–128; BP diastolic 46–73; PULSE 82–107; RESP 14–20; TEMP 98.6–100.6; O2SAT 86–100
[2024-05-25 04:13] LABS: Basophils # (auto) 0.1 10 ^3/uL (0-0.2); Basophils % (auto) 0.4 % (0.0-2.0); Eosinophils # (auto) 0.1 10 ^3/uL (0-0.8); Eosinophils % (auto) 0.8 % (0.0-7.0); Hematocrit 33.9 % (36.0-46.0); Hemoglobin 11.2 g/dL (12.2-16.2); Lymphocytes # (auto) 2.4 10 ^3/uL (0.4-5.4); Lymphocytes % (auto) 14.2 % (10.0-50.0); Mean Corpuscular Hemoglobin 31.9 pg (28.0-32.0); Mean Corpuscular Hgb Conc. 33.2 g/dL (32.0-36.0); Mean Corpuscular Volume 96.1 fL (80.0-100.0); Monocytes # (auto) 0.5 10 ^3/uL (0-1.3); Monocytes % (auto) 3.1 % (0.0-12.0); Neutrophils # (auto) 13.5 10 ^3/uL (1.6-8.6); Neutrophils % (auto) 81.5 % (37.0-80.0); Platelet Count (auto) 187 10^3/uL (140-450); Red Blood Cells 3.53 10^6/uL (4.0-5.20); Red Cell Distribution Width 14.3 % (11.8-14.3); White Blood Cell 16.6 10^3/uL (4.4-10.8)
[2024-05-25 04:34] LABS: Alanine Aminotransferase 13 U/L (7-40); Albumin 3.6 g/dL (3.2-4.8); Alkaline Phosphatase 72 U/L (46-116); Anion Gap 7 (5-15); Aspartate Aminotransferase 22 U/L (13-40); Bilirubin, Total 1.1 mg/dL (0.2-1.0); Calcium 7.7 mg/dL (8.7-10.4); Carbon Dioxide 23 mmol/L (20-31); Chloride 108 mmol/L (98-107); Glucose 150 mg/dL (74-106); Magnesium 2.4 mg/dL (1.6-2.6); Potassium 3.8 mmol/L (3.5-5.1); Sodium 138 mmol/L (136-145)
[2024-05-25 04:43] LABS: BUN/Creatinine Ratio 10.4 (10.0-20.0); Blood Urea Nitrogen < 5 mg/dL (9-23)
[2024-05-25 05:07] LABS: Lactic Acid w/Reflex 2.7 mmol/L (0.4-2.0)
--- NOTE | 2024-05-25 06:06 | DVH ---
CHEST RADIOGRAPH Indication:INTUBATED Technique: Single frontal view of the chest was obtained Comparison: XY CHEST XRAY 1 VIEW on DOS: 05/23/24, XY CHEST PORTABLE on DOS: 05/23/24 IMPRESSION:Endotracheal tube tip is approximately 4 cm from the deloris. Right IJ catheter tip is in t he superior vena cava. Mild pulmonary vascular congestion. No sizable airspace opacity, effusion, or pneumothorax. Enteric tube has been removed. HS:Y
[2024-05-25 07:24] LABS: Base Excess -1.9 mmol/L (-2.0-3.0)
[2024-05-25] MEDS: chlordiazePOXIDE HCL 25 MG CAP PO PRN (15:54)
--- NOTE | 2024-05-25 17:46 | DVHPN2 ---
Subjective The patient is a 35-year-old female with unknown past medical history presented to [facility] ED for evaluation of altered level of consciousness. The patient was [place] station for a proximally 20 minutes and EMS were called. When EMS arrived on the scene, patient was unresponsive and was given 10 mg Narcan IV with positive response and eye opening. Patient fell asleep but has stable virals en route to our facility ED. patient was seen and evaluated in the ED sleeping and was subsequently intubated, laboratory data shows WBC 7.9, platelets 328, sodium 141, potassium 4.0, BUN 7, creatinine 0.73, glucose 279, serum alcohol 553.8, blood pressure 98/53, heart rate 96, temperature 98.2 F, O2 saturation 94% on ventilator. Head CT showed no acute intracranial abnormality. Please see medication orders section in the computer. On my assessment, patient remains fully intubated, no diaphoresis, no vomiting, no fever, no chills. Patient was admitted for further evaluation and medical management. remains intubated in ICU per nurse had elevated lactic acid this morning Changes from previous H/P or p: No Changes Eyes: No Pain, No Vision change, No Conjunctivae inflammation, No Eyelid inflammation, No Other, No Redness ENT: No Ear pain, No Ear discharge, No Nose pain, No Nose discharge, No Nose congestion, No Mouth pain, No Mouth swelling, No Throat pain, No Throat swelling, No Other Cardiovascular: No Chest Pain, No Palpitations, No Orthopnea, No Paroxysmal Noc. Dyspnea, No Edema, No Lt Headedness, No Other Respiratory: No Cough, No Dry, No Shortness of breath, No SOB with excertion, No Wheezing, No Hemoptysis, No Pleuritic Pain, No Sputum, No Other Gastrointestinal: No Nausea, No Vomiting, No Abdominal Pain, No Diarrhea, No Constipation, No Melena, No Hematochezia, No Other Genitourinary: No Dysuria, No Frequency, No Incontinence, No Hematuria, No Retention, No Other Musculoskeletal: No other, No neck pain, No shoulder pain, No arm pain, No back pain, No hand pain, No leg pain, No foot pain Skin: No Rash, No Lesions, No Jaundice, No Bruising, No Other Objective Vitals Vital Signs Date Time Temp Pulse Resp B/P (MAP) Pulse Ox O2 Delivery O2 Flow Rate FiO2 10/27/24 16:00 30 05/25/24 16:00 91 05/25/24 15:35 16 99/55 (70) 99 05/25/24 15:30 100.2 212.4 05/25/24 08:00 Mechanical Ventilator+ 05/23/24 16:40 6 Intake/Output Intake and Output 05/25/24 05:00 Intake Total 4395.0 ml Output Total 3500 ml Balance 895.0 ml Intake Oral 0 ml IV Total 4395.0 ml Output Urine Total 3500 ml Medications Current Medications Medications Dose Ordered Sig/Janna Route Start Time Stop Time Status Last Admin Dose Admin Midazolam HCl 50 ml @ 1 mls/hr Q24H IV 05/23/24 19:15 05/25/24 13:43 12 MLS/HR Norepinephrine Bitartrate 250 ml @ 3.75 mls/hr Q24H IV 05/23/24 20:30 05/23/24 21:10 3.75 MLS/HR Folic Acid 1 mg/ Multivitamins 10 ml/Magnesium Sulfate 8 meq/ Thiamine HCl 100 mg/Dextrose/ Sodium Chloride 1,013.2 ml @ 125.001 mls/hr DAILY@1800 INJ 05/24/24 18:00 05/25/24 17:29 125.001 MLS/HR Acetaminophen 650 mg Q6HP PRN [place] 05/23/24 22:15 05/25/24 04:22 650 MG Ondansetron HCl 4 mg Q4HP PRN IV 05/23/24 22:15 Enoxaparin Sodium 40 mg DAILY SC 05/24/24 10:00 05/25/24 09:10 40 MG Nitroglycerin 0.4 mg Q5MINP PRN SL 05/23/24 23:15 Morphine Sulfate 2 mg Q30M PRN IV 05/23/24 23:15 Fentanyl Citrate 250 ml @ 2.5 mls/hr Q24H IV 05/24/24 04:00 05/25/24 09:19 20 MLS/HR Diagnostic Test (Pha) 1 strip Q6HR 05/24/24 12:00 05/25/24 17:13 1 STRIP Insulin Human Regular Q6HR SC 05/24/24 08:30 05/25/24 05:37 2 UNITS Dextrose 50 ml UD PRN IV 05/24/24 08:30 Sodium Chloride 1,000 ml @ 150 mls/hr Q6H40M IV 05/24/24 12:45 05/25/24 17:13 150 MLS/HR Piperacillin Sod/ Tazobactam Sod 100 ml @ 25 mls/hr Q8HR IV 05/24/24 14:00 05/25/24 14:40 25 MLS/HR Chlordiazepoxide HCl 25 mg Q6HPRN PRN PO 05/25/24 13:00 05/25/24 15:54 25 MG Laboratory Results Laboratory Tests 05/25/24 03:39 Chemistry Test 05/25/24 03:39 Albumin 3.6 g/dL (3.2-4.8) Calcium Level 7.7 mg/dL (8.7-10.4) L Magnesium Level 2.4 mg/dL (1.6-2.6) Total Protein 6.0 g/dL (5.7-8.2) LFT Test 05/25/24 03:39 Alanine Aminotransferase (ALT) 13 U/L (7-40) Alkaline Phosphatase 72 U/L (46-116) Aspartate Amino Transferase (AST) 22 U/L (13-40) Total Bilirubin 1.1 mg/dL (0.2-1.0) H Urinalysis Test 05/23/24 19:10 Urine Color Colorless (Yellow) Urine Clarity Clear (Clear) Urine pH 5.5 (5.0-9.0) Urine Specific [place] 1.006 (1.001-1.035) Urine Protein Negative (Negative) Urine Ketones Negative (Negative) Urine Blood Negative /uL (Negative) Urine Nitrite Negative (Negative) Urine Bilirubin Negative (Negative) Urine Urobilinogen Normal mg/dL (Negative) Urine Leukocyte Esterase Negative /uL (Negative) Urine RBC <1 /hpf (0 - 4) Urine WBC None seen /hpf (0 - 5) Urine Squamous Epithelial Cells None seen /hpf (<5) Urine Bacteria None seen /hpf (None Seen) Urine Glucose 4+ mg/dL (Normal) H Blood Gas Results Test 05/25/24 07:19 Arterial Blood pH 7.335 (7.350-7.450) FiO2 % 30.0 Microbiology Microbiology Date/Time Source Procedure Growth Status 05/24/24 15:16 Urine - [place] Urine Culture - Preliminary Resulted 05/24/24 13:41 Blood Blood Culture - Preliminary NO GROWTH AFTER 24 HOURS OF INCUBATION. Resulted 05/24/24 04:30 Nose MRSA Screen - Final Complete Assessment/Plan Assessment/Plan Metabolic encephalopathy Generalized weakness Hyperglycemia Acute respiratory failure Alcohol intoxication Altered level of consciousness Plan sepsis workup including blood, and urine cx IV zosyn monitor labs daily vent management per ICU Start librium today Critical care time including discussion with providers, nursing and patient care is 50 minutes Plan discussed with: Other (nurse) My Orders Orders - ROSHAN RUIZ MD Procedure Category Date Status Time Chlordiazepoxide Hcl PHA 05/25/24 In Process Capsule (Librium Ca 13:00 Date of Service: May 25, 2024 Billing Provider: ROSHAN RUIZ MD Common Visit Codes: [id number] CARE 30-74 MIN ROSHAN RUIZ MD May 25, 2024 17:46
[2024-05-26] VITALS (107 sets, daily range): BP systolic 87–108; BP diastolic 46–68; PULSE 72–101; RESP 15–18; TEMP 98.6–100.8; O2SAT 96–100
[2024-05-26 03:39] LABS: Basophils # (auto) 0 10 ^3/uL (0-0.2); Basophils % (auto) 0.3 % (0.0-2.0); Eosinophils # (auto) 0.4 10 ^3/uL (0-0.8); Eosinophils % (auto) 2.8 % (0.0-7.0); Hemoglobin 10.3 g/dL (12.2-16.2); Lymphocytes # (auto) 1.8 10 ^3/uL (0.4-5.4); Lymphocytes % (auto) 12.4 % (10.0-50.0); Mean Corpuscular Hemoglobin 31.5 pg (28.0-32.0); Mean Corpuscular Hgb Conc. 33.3 g/dL (32.0-36.0); Mean Corpuscular Volume 94.5 fL (80.0-100.0); Monocytes # (auto) 0.3 10 ^3/uL (0-1.3); Monocytes % (auto) 2.4 % (0.0-12.0); Neutrophils # (auto) 11.8 10 ^3/uL (1.6-8.6); Neutrophils % (auto) 82.1 % (37.0-80.0); Platelet Count (auto) 164 10^3/uL (140-450); Red Blood Cells 3.28 10^6/uL (4.0-5.20); Red Cell Distribution Width 13.5 % (11.8-14.3); White Blood Cell 14.3 10^3/uL (4.4-10.8)
[2024-05-26 03:58] LABS: Alanine Aminotransferase 18 U/L (7-40); Albumin 3.2 g/dL (3.2-4.8); Alkaline Phosphatase 89 U/L (46-116); Anion Gap 6 (5-15); Aspartate Aminotransferase 29 U/L (13-40); Bilirubin, Total 0.9 mg/dL (0.2-1.0); Calcium 7.4 mg/dL (8.7-10.4); Carbon Dioxide 25 mmol/L (20-31); Chloride 105 mmol/L (98-107); Glucose 161 mg/dL (74-106); Magnesium 2.1 mg/dL (1.6-2.6); Potassium 3.2 mmol/L (3.5-5.1); Sodium 136 mmol/L (136-145); Total Protein 5.5 g/dL (5.7-8.2)
[2024-05-26 04:05] LABS: BUN/Creatinine Ratio 10.2 (10.0-20.0); Blood Urea Nitrogen < 5 mg/dL (9-23)
--- NOTE | 2024-05-26 05:01 | DVH ---
CHEST RADIOGRAPH Indication:INTUBATED Technique: Single frontal view of the chest was obtained Comparison: XY CHEST PORTABLE on DOS: 05/25/24 FINDINGS: Lines and Tubes: The endotracheal tube terminates 4.5 cm above the deloris. Right central venous cath eter terminates in the superior cavoatrial junction. The enteric tube courses below the left hemidiap hragm and the tip extends outside the field of view. Lungs: Left basilar opacity. Pleura: No effusion. No pneumothorax. Cardiomediastinal contours: Unremarkable Bones: No acute osseous abnormality. IMPRESSION: 1. Support tubes in appropriate position. 2. Left basilar opacity which may reflect atelectasis.
[2024-05-26] MEDS: POTASSIUM CHL 20MEQ/100ML 100 ML IV ONE ×2 (05:10)
[2024-05-26 07:51] LABS: Base Excess -0.4 mmol/L (-2.0-3.0)
[2024-05-26] MEDS: POTASSIUM CHL 20MEQ/100ML 100 ML IV SCH (13:26)
--- NOTE | 2024-05-26 13:53 | ECG ---
[facility] Test Date: 2024-05-24 Test Time: 10:34:14 Pat Name: THEODORE DEVINE Department: Room: [address] [place] [address] A Gender: F Vat Tender: : 1985 Requested By: ABIGAIL JOSEPH Order Number: [id number] Reading MD: Chintan Thomas Measurements Intervals [place] Rate: 94 P: 52 KS: 144 QRS: 53 QRSD: 72 T: -3 QT: 392 QTc: 490 Interpretive Statements Normal sinus rhythm Nonspecific ST and T wave abnormality Prolonged QT Electronically Signed On 05-26-2024 16:09:50 PDT by Chintan Thomas Please click the below link to view image of tracing.
[2024-05-26] MEDS ORDERED: DEXTROSE (50%) 50ML SYRG IV PRN (14:45)
[2024-05-26] MEDS: PANTOPRAZOLE 40 MG/10 ML VIAL INJ IV ONE (16:10)
[2024-05-26] MEDS: ACCU-CHEK COMFORT CURVE STRIP VI SCH (17:50)
[2024-05-26] MEDS: InsuLIN REG 1unit/0.01ml Soln (100units/ml) SC SCH (17:52)
--- NOTE | 2024-05-26 20:14 | DVHPNRES ---
Progress Note Date Seen: May 26, 2024 Resident Creating Document: TERRY MASTERS RESIDENT Medical Necessity Reason Pt with a Central, PICC or Fol: Yes The following are medically ne: Central Line, Verde Catheter Subjective Review of Systems A 39y old female with PMHx of MD and HTN who was found in 05/23/2024 unresponsive at a gas station BIBA and intubated immediately to protect the airway. Patient was admitted and it was found elevated WBC count, x ray with signs of possible aspiration pneumonia, diagnosed with septic shock and placed on vasopressor and on zosyn. Past medical history: Diabetes, hypertension, two previous admissions due to alcohol intoxication. Family history: Mother had diabetes and sudden cardiac at age of 52 Social history: Lives with family in [place]. She is a heavy ethanol abuser, goes through binges (had stopped drinking for the last two months). Denies tobacco and other drug abuse Home medication: Metformin and antihypertensive medication which father can not recall Patient seen and examined at bedside. Could not obtain review of systems since patient is under sedation due to mechanical ventilation. Objective vital signs Vital Sign Date Time Temp Pulse Resp B/P (MAP) Pulse Ox O2 Delivery O2 Flow Rate FiO2 05/26/24 18:58 92 17 97/61 98 30 05/26/24 18:45 99.5 211.1 05/26/24 18:16 Mechanical Ventilator+ Total Intake and Output 05/25/24 05/25/24 05/26/24 15:00 23:00 07:00 Intake Total 1457.0 ml 2220.0 ml 1898.2 ml Output Total 425 ml 1500 ml Balance 1457.0 ml 1795.0 ml 398.2 ml medications Current Medications Medications Dose Ordered Sig/Janna Route Start Time Stop Time Status Last Admin Dose Admin Midazolam HCl 50 ml @ 1 mls/hr Q24H IV 05/23/24 19:15 05/26/24 16:11 10 MLS/HR Norepinephrine Bitartrate 250 ml @ 3.75 mls/hr Q24H IV 05/23/24 20:30 05/23/24 21:10 3.75 MLS/HR Folic Acid 1 mg/ Multivitamins 10 ml/Magnesium Sulfate 8 meq/ Thiamine HCl 100 mg/Dextrose/ Sodium Chloride 1,013.2 ml @ 125.001 mls/hr DAILY@1800 INJ 05/24/24 18:00 05/26/24 17:46 125.001 MLS/HR Acetaminophen 650 mg Q6HP PRN MD 05/23/24 22:15 05/26/24 03:14 650 MG Enoxaparin Sodium 40 mg DAILY SC 05/24/24 10:00 05/26/24 12:01 40 MG Nitroglycerin 0.4 mg Q5MINP PRN SL 05/23/24 23:15 Morphine Sulfate 2 mg Q30M PRN IV 05/23/24 23:15 Fentanyl Citrate 250 ml @ 2.5 mls/hr Q24H IV 05/24/24 04:00 05/26/24 12:20 17.5 MLS/HR Piperacillin Sod/ Tazobactam Sod 100 ml @ 25 mls/hr Q8HR IV 05/24/24 14:00 05/26/24 16:10 25 MLS/HR Chlordiazepoxide HCl 25 mg Q6HPRN PRN PO 05/25/24 13:00 05/26/24 18:30 25 MG Diagnostic Test (Pha) 1 strip Q6HR 05/26/24 18:00 05/26/24 17:50 1 STRIP Insulin Human Regular Q6HR SC 05/26/24 18:00 Dextrose 50 ml UD PRN IV 05/26/24 14:45 Pantoprazole Sodium 40 mg DAILY IV 05/27/24 10:00 Dexmedetomidine HCl 400 mcg/ Dextrose 100 ml @ 3.4 mls/hr Q24H IV 05/26/24 16:45 Examination General: RASS -1, afebrile, mucosae are moist Cardiovascular: Normal S1 and S2. No murmurs, gallops or rubs Respiratory: Mechanically assisted ventilation, equal bilateral airway entree. Clear lung sounds on auscultation Abdomen: Soft, nontender, no organomegaly, normal bowel sounds MSK/skin: Mobilization of limbs cannot be evaluated. Skin is dry and warm Neurological: Orientation cannot be assessed. No apparent motor no sensitive deficits. Pupils are isocoric and reactive laboratory and microbiology Laboratory Tests 05/26/24 10:00 05/26/24 03:16 Test 05/26/24 03:16 Range/Units Serum Glucose 161 H 74-106 mg/dL Microbiology Date/Time Source Procedure Growth Status 05/24/24 15:16 Urine - [place] Urine Culture - Preliminary Resulted 05/24/24 13:41 Blood Blood Culture - Preliminary NO GROWTH AFTER 48 HOURS OF INCUBATION. Resulted 05/24/24 04:30 Nose MRSA Screen - Final Complete Problem List/Assessment/Plan Problem List/Assessment/Plan Neurology Patient is on sedation versed and fentanyl RASS -1 Acute metabolic encephalopathy due to alcohol overdose Librium PRN Banana bag 125 cc/h Head CT scan normal Cardiovascular off pressors at the moment xray showed possible right side consolidation, but no vascular congestion, no crackles on auscultation Essential hypertension Pt is on septic shock at the moment Respiratory Acute respiratory failure due to possible aspiration pneumonia Patient is intubated since may 23, today with minimal vent settings tomorrow cpap trial Start precedex Pt is on zosyn wbc is trending now cultures preliminary negative Nephrology Normal creatinine Endocrinology Diabetes type 2 hba1c 7.1 Mild insulin sliding scale Hypokalemia K+ IV Infectious disease Septic shock due to possible aspiration pneumonia xray showed possible right side consolidation, but no vascular congestion, no crackles on auscultation wbc trending down off pressors Goals of care full code PUD prophylaxis protonix 40 mg IV DVT prophylaxis enoxaparin 40 mg SC Pt has central line placed on 05/27/24 Critical care time spent 81 min Case discussed with Dr Chau Plan discussed with: Patient, Other (rn) My Orders My Orders Orders - TERRY MASTERS RESIDENT Procedure Category Date Status Time Respiratory Culture AAMIR 05/26/24 In Process W/ Gs 18:58 D5w 5% (Dextrose 5%) PHA 05/26/24 In Process W/Dexmedetomidine 16:45 Potassium LAB 05/26/24 Logged 20:00 Phosphorus LAB 05/27/24 Verified 04:00 Magnesium LAB 05/27/24 Verified 04:00 Complete Blood Count LAB 05/27/24 Verified 04:00 Comprehensive LAB 05/27/24 Verified Metabolic Panel 04:00 Chest Xray 1 View XY 05/27/24 Logged 04:00 Abg W/ Co-Ox RT 05/27/24 Logged 04:00 Dietary Evaluation Review Comments: 1. Consider EN or PN regime if NPO>5 days Expected Outcomes/Goals: 1. Pt will consume >75% of estimated needs within 2-3 days Date of Service: May 26, 2024 Billing Provider: BERTO CHAU MD Common Visit Codes: 66860-[id number] CARE 30-74 MIN, 50378-OGONACLU CARE-EACH +30MIN TERRY MASTERS May 26, 2024 20:14 BERTO CHAU MD May 27, 2024 11:09
[2024-05-27] VITALS (106 sets, daily range): BP systolic 91–147; BP diastolic 48–90; PULSE 77–113; RESP 15–29; TEMP 98.1–101.1; O2SAT 87–100
[2024-05-27 03:39] LABS: Basophils # (auto) 0 10 ^3/uL (0-0.2); Basophils % (auto) 0.3 % (0.0-2.0); Eosinophils # (auto) 0.4 10 ^3/uL (0-0.8); Eosinophils % (auto) 3.6 % (0.0-7.0); Hematocrit 30.2 % (36.0-46.0); Hemoglobin 10.1 g/dL (12.2-16.2); Lymphocytes # (auto) 1.6 10 ^3/uL (0.4-5.4); Lymphocytes % (auto) 16.2 % (10.0-50.0); Mean Corpuscular Hemoglobin 31.4 pg (28.0-32.0); Mean Corpuscular Hgb Conc. 33.5 g/dL (32.0-36.0); Mean Corpuscular Volume 93.7 fL (80.0-100.0); Monocytes # (auto) 0.3 10 ^3/uL (0-1.3); Monocytes % (auto) 3.4 % (0.0-12.0); Neutrophils # (auto) 7.5 10 ^3/uL (1.6-8.6); Neutrophils % (auto) 76.5 % (37.0-80.0); Platelet Count (auto) 194 10^3/uL (140-450); Red Blood Cells 3.22 10^6/uL (4.0-5.20); Red Cell Distribution Width 13.5 % (11.8-14.3); White Blood Cell 9.9 10^3/uL (4.4-10.8)
[2024-05-27 03:56] LABS: Alanine Aminotransferase 16 U/L (7-40); Albumin 3.3 g/dL (3.2-4.8); Alkaline Phosphatase 130 U/L (46-116); Anion Gap 6 (5-15); Aspartate Aminotransferase 19 U/L (13-40); Bilirubin, Total 0.8 mg/dL (0.2-1.0); Calcium 8.4 mg/dL (8.7-10.4); Carbon Dioxide 26 mmol/L (20-31); Chloride 107 mmol/L (98-107); Glucose 192 mg/dL (74-106); Magnesium 2.4 mg/dL (1.6-2.6); Phosphorus 1.8 mg/dL (2.4-5.1); Potassium 3.3 mmol/L (3.5-5.1); Sodium 139 mmol/L (136-145); Total Protein 5.8 g/dL (5.7-8.2)
[2024-05-27 04:21] LABS: BUN/Creatinine Ratio 10.4 (10.0-20.0); Blood Urea Nitrogen < 5 mg/dL (9-23)
--- NOTE | 2024-05-27 04:42 | DVH ---
CHEST RADIOGRAPH Indication:dyspnea Technique: Single frontal view of the chest was obtained Comparison: XY CHEST PORTABLE on DOS: 05/26/24 FINDINGS: Lines and Tubes: The endotracheal tube terminates 3.7 cm above the deloris. Right central venous cath eter terminates in the superior vena cava. The enteric tube courses below the left hemidiaphragm and the tip extends outside the field of view. Lungs: Hazy bilateral pulmonary opacities. Pleura: No effusion. No pneumothorax. Cardiomediastinal contours: Unremarkable Bones: No acute osseous abnormality. IMPRESSION: 1. Hazy bilateral pulmonary opacities.
[2024-05-27] MEDS: POTASSIUM CHL 20MEQ/100ML 100 ML IV SCH (05:09)
[2024-05-27 06:18] LABS: Base Excess -0.2 mmol/L (-2.0-3.0)
[2024-05-27] MEDS: PANTOPRAZOLE 40 MG/10 ML VIAL INJ IV SCH (09:34)
[2024-05-27] MEDS: POTASSIUM PHOSPHATE 22 MEQ in SODIUM CHL 0.9% 100 ML IV ONE (09:38)
[2024-05-27 10:47] LABS: Base Excess -3.8 mmol/L (-2.0-3.0)
[2024-05-27] MEDS: FUROSEMIDE 20 MG/2 ML VIAL IV ONE (11:33)
[2024-05-27] MEDS: ENOXAPARIN SOD 40 MG/0.4 ML SYRINGE SC SCH (11:38)
[2024-05-27] MEDS: POTASSIUM CHL 20MEQ/100ML 100 ML IV ONE (11:38)
[2024-05-27] MEDS ORDERED: methylPREDNISolone SOD SUCC 40 MG/ML VL IV ONE (13:15)
[2024-05-27] MEDS: ACETYLCYSTEINE 20%(200MG/ML) SOL 4ML NEB SCH (14:08)
[2024-05-27] MEDS: ALBUTEROL SULF 2.5 MG/0.5ML(0.5%) NEB SOLN NEB SCH (14:19)
[2024-05-27] MEDS: ALBUTEROL SULF 2.5 MG/0.5ML(0.5%) NEB SOLN ONE (14:19)
--- NOTE | 2024-05-27 21:41 | DVHPNRES ---
Progress Note Date Seen: May 27, 2024 Resident Creating Document: TERRY MASTERS RESIDENT Medical Necessity Reason Pt with a Central, PICC or Fol: Yes The following are medically ne: Central Line, Verde Catheter Subjective Review of Systems A 39y old female with PMHx of MD and HTN who was found in 05/23/2024 unresponsive at a gas station BIBA and intubated immediately to protect the airway. Patient was admitted and it was found elevated WBC count, x ray with signs of possible aspiration pneumonia, diagnosed with septic shock and placed on vasopressor and on zosyn. Past medical history: Diabetes, hypertension, two previous admissions due to alcohol intoxication. Family history: Mother had diabetes and sudden cardiac at age of 52 Social history: Lives with family in [place]. She is a heavy ethanol abuser, goes through binges (had stopped drinking for the last two months). Denies tobacco and other drug abuse Home medication: Metformin and antihypertensive medication which father can not recall Patient seen and examined at bedside. Patient is off vasopressors, sputum cultures came positive for group c streptococcus, cpap trial was attempted, but patient was not fully awake, so not possible, tomorrow cpap trial AM Objective vital signs Vital Sign Date Time Temp Pulse Resp B/P (MAP) Pulse Ox O2 Delivery O2 Flow Rate FiO2 05/27/24 18:45 98.6 92 16 118/78 (91) 99 209.5 05/27/24 18:00 30 05/27/24 08:00 Mechanical Ventilator+ Total Intake and Output 05/26/24 05/26/24 05/27/24 15:00 23:00 07:00 Intake Total 1457.5 ml 2285 ml 872.7 ml Output Total 2600 ml 2350 ml Balance 1457.5 ml -315 ml -1477.3 ml medications Current Medications Medications Dose Ordered Sig/Janna Route Start Time Stop Time Status Last Admin Dose Admin Midazolam HCl 50 ml @ 1 mls/hr Q24H IV 05/23/24 19:15 05/27/24 01:57 5 MLS/HR Norepinephrine Bitartrate 250 ml @ 3.75 mls/hr Q24H IV 05/23/24 20:30 05/23/24 21:10 3.75 MLS/HR Acetaminophen 650 mg Q6HP PRN KS 05/23/24 22:15 05/26/24 03:14 650 MG Nitroglycerin 0.4 mg Q5MINP PRN SL 05/23/24 23:15 Morphine Sulfate 2 mg Q30M PRN IV 05/23/24 23:15 Fentanyl Citrate 250 ml @ 2.5 mls/hr Q24H IV 05/24/24 04:00 05/27/24 01:25 17.5 MLS/HR Piperacillin Sod/ Tazobactam Sod 100 ml @ 25 mls/hr Q8HR IV 05/24/24 14:00 05/27/24 16:01 25 MLS/HR Chlordiazepoxide HCl 25 mg Q6HPRN PRN PO 05/25/24 13:00 05/27/24 18:25 25 MG Diagnostic Test (Pha) 1 strip Q6HR 05/26/24 18:00 05/27/24 18:17 1 STRIP Insulin Human Regular Q6HR SC 05/26/24 18:00 05/27/24 18:19 3 UNITS Dextrose 50 ml UD PRN IV 05/26/24 14:45 Pantoprazole Sodium 40 mg DAILY IV 05/27/24 10:00 05/27/24 09:34 40 MG Dexmedetomidine HCl 400 mcg/ Dextrose 100 ml @ 3.4 mls/hr Q24H IV 05/26/24 16:45 05/27/24 06:21 3.4 MLS/HR Acetylcysteine 200 mg Q8HR NEB 05/27/24 14:00 05/27/24 14:08 200 MG Enoxaparin Sodium 40 mg DAILY SC 05/27/24 10:00 05/27/24 11:38 40 MG Thiamine HCl 100 mg DAILY IV 05/28/24 10:00 Future hold Folic Acid 1 mg/ Dextrose 50.2 ml @ 200.8 mls/ hr DAILY INJ 05/28/24 10:00 Future hold Albuterol 2.5 mg Q8HR NEB 05/27/24 14:00 05/27/24 14:19 2.5 MG Folic Acid 1 mg/ Magnesium Sulfate 8 meq/ Multivitamins 10 ml/Thiamine HCl 100 mg/Sodium Chloride 1,013.2 ml @ 126.247 mls/hr DAILY@1800 INJ 05/28/24 18:00 05/31/24 02:02 Examination General: RASS -1, afebrile, mucosae are moist Cardiovascular: Normal S1 and S2. No murmurs, gallops or rubs Respiratory: Mechanically assisted ventilation, equal bilateral airway entree. Clear lung sounds on auscultation Abdomen: Soft, nontender, no organomegaly, normal bowel sounds MSK/skin: Mobilization of limbs cannot be evaluated. Skin is dry and warm Neurological: Orientation cannot be assessed. No apparent motor no sensitive deficits. Pupils are isocoric and reactive laboratory and microbiology Laboratory Tests 05/27/24 03:00 Test 05/27/24 03:00 Range/Units Serum Glucose 192 H 74-106 mg/dL Microbiology Date/Time Source Procedure Growth Status 05/26/24 19:24 Sputum Gram Stain - Final Resulted 05/26/24 19:24 Sputum Respiratory Culture - Preliminary Resulted 05/24/24 15:16 Urine - [place] Urine Culture - Preliminary Resulted 05/24/24 13:41 Blood Blood Culture - Preliminary NO GROWTH AFTER 72 HOURS OF INCUBATION. Resulted 05/24/24 04:30 Nose MRSA Screen - Final Complete Problem List/Assessment/Plan Problem List/Assessment/Plan Neurology Patient is off sedation precedex was discontinue in the morning and cpap trail was attempted, patient was not fully awake, so extubation couldnt be done Tomorrow cpap trial again Acute metabolic encephalopathy due to alcohol overdose Librium PRN Banana bag 125 cc/h Head CT scan normal Cardiovascular off pressors at the moment xray showed possible right side consolidation, but no vascular congestion, no crackles on auscultation Essential hypertension Pt is on septic shock at the moment Respiratory Acute respiratory failure due to aspiration pneumonia Patient is intubated since may 23, cpap trial unsuccessful today, tomorrow cpap trial again Pt is on zosyn wbc is trending now cultures positive for group C streptococcus Nephrology Normal creatinine Endocrinology Diabetes type 2 hba1c 7.1 Mild insulin sliding scale Hypokalemia K+ IV Infectious disease Septic shock due to possible aspiration pneumonia xray showed possible right side consolidation, but no vascular congestion, no crackles on auscultation wbc trending down off pressors Goals of care full code PUD prophylaxis protonix 40 mg IV DVT prophylaxis enoxaparin 40 mg SC Pt has central line placed on 05/27/24 Critical care time including cpap trial was 81 mins Case discussed with Dr Chau Plan discussed with: Patient, Other (rn) My Orders My Orders Orders - BYRNE R,TERRY RESIDENT Procedure Category Date Status Time Acetylcysteine PHA 05/27/24 In Process Inhalation 20% 14:00 Abg W/ Co-Ox RT 05/27/24 Logged 10:40 Albuterol Medneb PHA 05/27/24 In Process (Ventolin Medneb) 14:00 Dietary Evaluation Review Comments: 1. Consider EN or PN regime if NPO>5 days Expected Outcomes/Goals: 1. Pt will consume >75% of estimated needs within 2-3 days Date of Service: May 27, 2024 Billing Provider: BERTO CHAU MD Common Visit Codes: 71950-[id number] CARE 30-74 MIN, 53641-[id number] CARE-EACH +30MIN TERRY MASTERS RESIDENT May 27, 2024 21:41 BERTO CHAU MD May 28, 2024 11:12
[2024-05-28] VITALS (108 sets, daily range): BP systolic 89–146; BP diastolic 50–105; PULSE 71–114; RESP 13–35; TEMP 98.1–101.7; O2SAT 88–100
[2024-05-28 04:28] LABS: Basophils # (auto) 0.1 10 ^3/uL (0-0.2); Basophils % (auto) 0.9 % (0.0-2.0); Eosinophils # (auto) 0.3 10 ^3/uL (0-0.8); Eosinophils % (auto) 3.3 % (0.0-7.0); Hematocrit 30.4 % (36.0-46.0); Hemoglobin 10.1 g/dL (12.2-16.2); Lymphocytes # (auto) 1.7 10 ^3/uL (0.4-5.4); Lymphocytes % (auto) 19.4 % (10.0-50.0); Mean Corpuscular Hemoglobin 31.1 pg (28.0-32.0); Mean Corpuscular Hgb Conc. 33.4 g/dL (32.0-36.0); Mean Corpuscular Volume 93.3 fL (80.0-100.0); Monocytes # (auto) 0.5 10 ^3/uL (0-1.3); Monocytes % (auto) 5.4 % (0.0-12.0); Neutrophils # (auto) 6.3 10 ^3/uL (1.6-8.6); Platelet Count (auto) 244 10^3/uL (140-450); Red Blood Cells 3.26 10^6/uL (4.0-5.20); Red Cell Distribution Width 13.2 % (11.8-14.3); White Blood Cell 8.8 10^3/uL (4.4-10.8)
--- NOTE | 2024-05-28 04:44 | DVH ---
CHEST RADIOGRAPH Indication:dyspnea Technique: Single frontal view of the chest was obtained COMPARISON: XY CHEST XRAY 1 VIEW on DOS: 05/27/24, XY CHEST PORTABLE on DOS: 05/26/24, XY CHEST JHOANA BLE on DOS: 05/25/24 FINDINGS: Lines and Tubes: Endotracheal tube, enteric catheter and right central venous catheter in satisfactor y position. Lungs: Multifocal airspace disease. Pleura: No effusion. No pneumothorax. Cardiomediastinal contours: Cardiomegaly Bones: Unremarkable IMPRESSION: Lines and tubes in satisfactory position. No significant interval change.
[2024-05-28 04:48] LABS: Alanine Aminotransferase 17 U/L (7-40); Alkaline Phosphatase 182 U/L (46-116); Anion Gap 9 (5-15); Aspartate Aminotransferase 27 U/L (13-40); Calcium 9.6 mg/dL (8.7-10.4); Carbon Dioxide 26 mmol/L (20-31); Chloride 100 mmol/L (98-107); Glucose 208 mg/dL (74-106); Magnesium 1.8 mg/dL (1.6-2.6); Potassium 4.3 mmol/L (3.5-5.1); Sodium 135 mmol/L (136-145)
[2024-05-28 04:49] LABS: Bilirubin, Total 0.6 mg/dL (0.2-1.0); Total Protein 6.6 g/dL (5.7-8.2)
[2024-05-28 04:51] LABS: Albumin 3.7 g/dL (3.2-4.8)
[2024-05-28 04:53] LABS: BUN/Creatinine Ratio 8.9 (10.0-20.0); Blood Urea Nitrogen < 5 mg/dL (9-23)
[2024-05-28] MEDS: ACETYLCYSTEINE 20%(200MG/ML) SOL 4ML NEB SCH (05:58)
[2024-05-28] MEDS: LORazepam 2MG/ML-1ML VIAL IV ONE (08:16)
[2024-05-28 09:44] LABS: Base Excess -1.5 mmol/L (-2.0-3.0)
[2024-05-28] MEDS ORDERED: THIAMINE 100mg/ml INJ (200mg/2ml VIAL) IV SCH (10:00)
[2024-05-28] MEDS ORDERED: FOLIC ACID 1 MG in D5W 5% 50 ML INJ SCH (10:00)
[2024-05-28] MEDS: EPINEPHrine HCL 0.5 ML NEB ONE (11:33)
[2024-05-28] MEDS: EPINEPHrine HCL 0.5 ML NEB NEB ONE (11:45)
--- NOTE | 2024-05-28 15:24 | DVHPNRES ---
Progress Note Date Seen: May 28, 2024 Resident Creating Document: TERRY MASTERS RESIDENT Medical Necessity Reason Pt with a Central, PICC or Fol: Yes The following are medically ne: Central Line, Verde Catheter Subjective Review of Systems A 39y old female with PMHx of MD and HTN who was found in 05/23/2024 unresponsive at a gas station BIBA and intubated immediately to protect the airway. Patient was admitted and it was found elevated WBC count, x ray with signs of possible aspiration pneumonia, diagnosed with septic shock and placed on vasopressor and on zosyn. Past medical history: Diabetes, hypertension, two previous admissions due to alcohol intoxication. Family history: Mother had diabetes and sudden cardiac at age of 52 Social history: Lives with family in [place]. She is a heavy ethanol abuser, goes through binges (had stopped drinking for the last two months). Denies tobacco and other drug abuse Home medication: Metformin and antihypertensive medication which father can not recall Patient seen and examined at bedside. Patient is off vasopressors, sputum cultures came positive for group c streptococcus, cpap trial successfully, extubation 11: 24, symptoms of alcohol withdrawal Objective vital signs Vital Sign Date Time Temp Pulse Resp B/P (MAP) Pulse Ox O2 Delivery O2 Flow Rate FiO2 05/28/24 14:37 111 24 95 05/28/24 14:31 Mask 10.0 05/28/24 14:31 40 40 05/28/24 10:09 109/55 (73) 05/28/24 09:33 101.3 Total Intake and Output 05/27/24 05/27/24 05/28/24 15:00 23:00 07:00 Intake Total 115.4 ml 175.3 ml 124.8 ml Output Total 3080 ml 900 ml Balance 115.4 ml -2904.7 ml -775.2 ml medications Current Medications Medications Dose Ordered Sig/Janna Route Start Time Stop Time Status Last Admin Dose Admin Midazolam HCl 50 ml @ 1 mls/hr Q24H IV 05/23/24 19:15 05/27/24 01:57 5 MLS/HR Norepinephrine Bitartrate 250 ml @ 3.75 mls/hr Q24H IV 05/23/24 20:30 05/23/24 21:10 3.75 MLS/HR Acetaminophen 650 mg Q6HP PRN LA 05/23/24 22:15 05/28/24 08:23 650 MG Nitroglycerin 0.4 mg Q5MINP PRN SL 05/23/24 23:15 Morphine Sulfate 2 mg Q30M PRN IV 05/23/24 23:15 Fentanyl Citrate 250 ml @ 2.5 mls/hr Q24H IV 05/24/24 04:00 05/27/24 01:25 17.5 MLS/HR Piperacillin Sod/ Tazobactam Sod 100 ml @ 25 mls/hr Q8HR IV 05/24/24 14:00 05/28/24 14:22 25 MLS/HR Chlordiazepoxide HCl 25 mg Q6HPRN PRN PO 05/25/24 13:00 05/28/24 10:53 25 MG Diagnostic Test (Pha) 1 strip Q6HR 05/26/24 18:00 05/28/24 12:15 1 STRIP Insulin Human Regular Q6HR SC 05/26/24 18:00 05/28/24 12:15 4 UNITS Dextrose 50 ml UD PRN IV 05/26/24 14:45 Pantoprazole Sodium 40 mg DAILY IV 05/27/24 10:00 05/28/24 10:18 40 MG Dexmedetomidine HCl 400 mcg/ Dextrose 100 ml @ 3.4 mls/hr Q24H IV 05/26/24 16:45 05/27/24 06:21 3.4 MLS/HR Enoxaparin Sodium 40 mg DAILY SC 05/27/24 10:00 05/28/24 10:09 40 MG Thiamine HCl 100 mg DAILY IV 05/28/24 10:00 Hold Folic Acid 1 mg/ Dextrose 50.2 ml @ 200.8 mls/ hr DAILY INJ 05/28/24 10:00 Hold Albuterol 2.5 mg Q8HR NEB 05/27/24 14:00 05/28/24 14:31 2.5 MG Folic Acid 1 mg/ Magnesium Sulfate 8 meq/ Multivitamins 10 ml/Thiamine HCl 100 mg/Sodium Chloride 1,013.2 ml @ 126.247 mls/hr DAILY@1800 INJ 05/28/24 18:00 05/31/24 02:02 Acetylcysteine 200 mg Q8HR NEB 05/28/24 06:00 05/30/24 14:00 05/28/24 14:31 200 MG Examination General: RASS 2 afebrile, mucosae are moist Cardiovascular: Normal S1 and S2. No murmurs, gallops or rubs Respiratory: Clear lung sounds on auscultation Abdomen: Soft, nontender, no organomegaly, normal bowel sounds MSK/skin: Mobilization of limbs cannot be evaluated. Skin is dry and warm Neurological: Orientation cannot be assessed. No apparent motor no sensitive deficits. Pupils are isocoric and reactive laboratory and microbiology Laboratory Tests 05/28/24 03:00 Test 05/28/24 03:00 Range/Units Serum Glucose 208 H 74-106 mg/dL Microbiology Date/Time Source Procedure Growth Status 05/26/24 19:24 Sputum Gram Stain - Final Resulted 05/26/24 19:24 Sputum Respiratory Culture - Preliminary Resulted 05/24/24 15:16 Urine - [place] Urine Culture - Final Complete 05/24/24 13:41 Blood Blood Culture - Preliminary NO GROWTH AFTER 72 HOURS OF INCUBATION. Resulted 05/24/24 04:30 Nose MRSA Screen - Final Complete Problem List/Assessment/Plan Problem List/Assessment/Plan Neurology Patient is off sedation precedex was discontinue, ativan and librium was given due to probable alcohol withdrawal before extubation, cpap trial was done for 3h, extubation at 11:24 #Acute metabolic encephalopathy due to alcohol overdose #alcohol withdrawal : fever, agitation Librium PRN Banana bag 125 cc/h Head CT scan normal Cardiovascular off pressors at the moment xray showed possible right side consolidation, but no vascular congestion, no crackles on auscultation Essential hypertension sof BPs Respiratory Acute respiratory failure due to aspiration pneumonia extubation at 11: 24 am Pt is on zosyn wbc is trending now cultures positive for group C streptococcus Nephrology Normal creatinine Endocrinology Diabetes type 2 hba1c 7.1 Mild insulin sliding scale Hypokalemia resolved Infectious disease Septic shock due to possible aspiration pneumonia resolving xray showed possible right side consolidation, but no vascular congestion, no crackles on auscultation wbc trending down off pressors Goals of care full code PUD prophylaxis protonix 40 mg IV DVT prophylaxis enoxaparin 40 mg SC Pt has central line placed on 05/27/24 Critical care time spent including cpap trial 86 min Case discussed with Dr Chau Plan discussed with: Patient, Other (rn) My Orders My Orders Orders - TERRY MASTERS RESIDENT Procedure Category Date Status Time Chest Xray 1 View XY 05/28/24 Resulted 04:00 Abg W/ Co-Ox RT 05/28/24 Logged 04:00 Cpap Trial For Am ORDERS 05/27/24 Transmitted 21:51 Communication Order ORDERS 05/27/24 Transmitted 21:51 Dietary Evaluation Review Comments: 1. Consider EN or PN regime if NPO>5 days Expected Outcomes/Goals: 1. Pt will consume >75% of estimated needs within 2-3 days Date of Service: May 28, 2024 Billing Provider: BERTO CHAU MD Common Visit Codes: 05505-[id number] CARE 30-74 MIN, [id number] CARE-EACH +30MIN TERRY MASTERS RESIDENT May 28, 2024 15:24 BERTO CHAU MD May 29, 2024 16:17
[2024-05-28] MEDS: ACETAMINOPHEN IV 1000 MG/100ML (10MG/ML) IV ONE (16:39)
[2024-05-28] MEDS: FOLIC ACID 1 MG, MAGNESIUM SULF SDV 50% 8 MEQ, MULTIPLE VITAMIN 10 ML, THIAMINE INJ 100... INJ SCH (17:51)
[2024-05-29] VITALS (58 sets, daily range): BP systolic 85–140; BP diastolic 39–90; PULSE 88–116; RESP 11–29; TEMP 98.8–99.9; O2SAT 86–100
[2024-05-29] MEDS: LORazepam 2MG/ML-1ML VIAL IV ONE (02:06)
[2024-05-29 03:58] LABS: Basophils # (auto) 0 10 ^3/uL (0-0.2); Basophils % (auto) 0.4 % (0.0-2.0); Eosinophils # (auto) 0.3 10 ^3/uL (0-0.8); Eosinophils % (auto) 3.2 % (0.0-7.0); Hematocrit 31.2 % (36.0-46.0); Hemoglobin 10.5 g/dL (12.2-16.2); Lymphocytes % (auto) 18.8 % (10.0-50.0); Mean Corpuscular Hemoglobin 31.6 pg (28.0-32.0); Mean Corpuscular Hgb Conc. 33.7 g/dL (32.0-36.0); Mean Corpuscular Volume 93.8 fL (80.0-100.0); Monocytes # (auto) 0.8 10 ^3/uL (0-1.3); Neutrophils # (auto) 7.3 10 ^3/uL (1.6-8.6); Neutrophils % (auto) 69.6 % (37.0-80.0); Platelet Count (auto) 276 10^3/uL (140-450); Red Blood Cells 3.32 10^6/uL (4.0-5.20); Red Cell Distribution Width 13.3 % (11.8-14.3); White Blood Cell 10.5 10^3/uL (4.4-10.8)
[2024-05-29 04:18] LABS: Alanine Aminotransferase 20 U/L (7-40); Albumin 4.3 g/dL (3.2-4.8); Alkaline Phosphatase 162 U/L (46-116); Anion Gap 13 (5-15); Aspartate Aminotransferase 28 U/L (13-40); Bilirubin, Total 0.5 mg/dL (0.2-1.0); Calcium 9.5 mg/dL (8.7-10.4); Carbon Dioxide 21 mmol/L (20-31); Chloride 99 mmol/L (98-107); Glucose 206 mg/dL (74-106); Potassium 3.6 mmol/L (3.5-5.1); Sodium 133 mmol/L (136-145); Total Protein 7.2 g/dL (5.7-8.2)
[2024-05-29 04:29] LABS: BUN/Creatinine Ratio 9.6 (10.0-20.0); Blood Urea Nitrogen < 5 mg/dL (9-23)
--- NOTE | 2024-05-29 05:41 | DVH ---
CHEST RADIOGRAPH Indication:dyspnea Technique: Single frontal view of the chest was obtained Comparison: XY CHEST XRAY 1 VIEW on DOS: 05/28/24 FINDINGS: Lines and Tubes: Right central venous catheter terminates in the superior cavoatrial junction. Endot jeremy and enteric tubes have been removed. Lungs: Improved aeration in the bilateral lungs. Pleura: No effusion. No pneumothorax. Cardiomediastinal contours: Unremarkable Bones: No acute osseous abnormality. IMPRESSION: 1. Improved aeration of the bilateral lungs.
--- NOTE | 2024-05-29 10:49 | MEDREC ---
[facility] Intervention Section I [facility] Intervention: Deescalate AB based on CS (ZOSYN DAY 6. PLEASE CONSIDER DE-ESCALATE ANTIBIOTIC BASED ON CULTURE RESULT) [facility] May 29, 2024 10:49
--- NOTE | 2024-05-29 22:48 | DVHPNRES ---
Progress Note Date Seen: May 29, 2024 Resident Creating Document: TERRY MASTERS RESIDENT Medical Necessity Reason Pt with a Central, PICC or Fol: Yes The following are medically ne: Central Line, Verde Catheter Subjective Review of Systems A 39y old female with PMHx of MD and HTN who was found in 05/23/2024 unresponsive at a gas station BIBA and intubated immediately to protect the airway. Patient was admitted and it was found elevated WBC count, x ray with signs of possible aspiration pneumonia, diagnosed with septic shock and placed on vasopressor and on zosyn. Past medical history: Diabetes, hypertension, two previous admissions due to alcohol intoxication. Family history: Mother had diabetes and sudden cardiac at age of 52 Social history: Lives with family in [place]. She is a heavy ethanol abuser, goes through binges (had stopped drinking for the last two months). Denies tobacco and other drug abuse Home medication: Metformin and antihypertensive medication which father can not recall Patient seen and examined at bedside. Patient is off vasopressors, sputum cultures came positive for group c streptococcus, cpap trial successfully, extubation yesterday, mild symptoms of alcohol withdrawal improving, patient can be safely downgrade to telemetry Objective vital signs Vital Sign Date Time Temp Pulse Resp B/P (MAP) Pulse Ox O2 Delivery O2 Flow Rate FiO2 05/29/24 21:42 110 23 96 05/29/24 21:35 Room Air* 0 21 05/29/24 18:00 102/63 (76) 05/29/24 16:00 99.0 99.0 Total Intake and Output 05/28/24 05/28/24 05/29/24 15:00 23:00 07:00 Intake Total 113.6 ml 771.235 ml 478.741 ml Output Total 1050 ml Balance 113.6 ml -278.765 ml 478.741 ml medications Current Medications Medications Dose Ordered Sig/Janna Route Start Time Stop Time Status Last Admin Dose Admin Acetaminophen 650 mg Q6HP PRN [place] 05/23/24 22:15 05/28/24 08:23 650 MG Nitroglycerin 0.4 mg Q5MINP PRN SL 05/23/24 23:15 Morphine Sulfate 2 mg Q30M PRN IV 05/23/24 23:15 Chlordiazepoxide HCl 25 mg Q6HPRN PRN PO 05/25/24 13:00 05/28/24 10:53 25 MG Diagnostic Test (Pha) 1 strip Q6HR 05/26/24 18:00 05/29/24 17:40 1 STRIP Insulin Human Regular Q6HR SC 05/26/24 18:00 05/29/24 17:43 4 UNITS Dextrose 50 ml UD PRN IV 05/26/24 14:45 Pantoprazole Sodium 40 mg DAILY IV 05/27/24 10:00 05/29/24 09:28 40 MG Enoxaparin Sodium 40 mg DAILY SC 05/27/24 10:00 05/29/24 09:29 40 MG Albuterol 2.5 mg Q8HR NEB 05/27/24 14:00 05/29/24 21:34 2.5 MG Acetylcysteine 200 mg Q8HR NEB 05/28/24 06:00 05/30/24 14:00 05/29/24 21:35 200 MG Thiamine HCl 100 mg DAILY IV 05/30/24 10:00 Folic Acid 1 mg/ Dextrose 50.2 ml @ 200.8 mls/ hr DAILY INJ 05/30/24 10:00 Ceftriaxone Sodium/Dextrose 50 ml @ 50 mls/hr DAILY IV 05/30/24 10:00 Examination General: alert, mucosae are moist Cardiovascular: Normal S1 and S2. No murmurs, gallops or rubs Respiratory: Clear lung sounds on auscultation Abdomen: Soft, nontender, no organomegaly, normal bowel sounds MSK/skin: Mobilization of limbs cannot be evaluated. Skin is dry and warm Neurological: Orientation cannot be assessed. No apparent motor no sensitive deficits. Pupils are isocoric and reactive laboratory and microbiology Laboratory Tests 05/29/24 03:32 Test 05/29/24 03:32 Range/Units Serum Glucose 206 H 74-106 mg/dL Microbiology Date/Time Source Procedure Growth Status 05/26/24 19:24 Sputum Gram Stain - Final Complete 05/26/24 19:24 Sputum Respiratory Culture - Final Complete 05/24/24 15:16 Urine - [place] Urine Culture - Final Complete 05/24/24 13:41 Blood Blood Culture - Final NO GROWTH AFTER 5 DAYS OF INCUBATION. Complete 05/24/24 04:30 Nose MRSA Screen - Final Complete Problem List/Assessment/Plan Problem List/Assessment/Plan Neurology Patient is alert, talking, answer questions #Acute metabolic encephalopathy due to alcohol overdose improving #alcohol withdrawal imprving Librium PRN Banana bag 125 cc/h Head CT scan normal Cardiovascular off pressors at the moment xray showed possible right side consolidation, but no vascular congestion, no crackles on auscultation Essential hypertension soft BPs Respiratory Acute respiratory failure due to aspiration pneumonia extubation at 11: 24 am yesterday Pt is on zosyn wbc is trending now cultures positive for group C streptococcus patient is safe to downgrade to telemetry Nephrology Normal creatinine Endocrinology Diabetes type 2 hba1c 7.1 Mild insulin sliding scale Hypokalemia resolved Infectious disease Septic shock due to possible aspiration pneumonia resolving xray showed possible right side consolidation, but no vascular congestion, no crackles on auscultation wbc trending down off pressors Goals of care full code PUD prophylaxis protonix 40 mg IV DVT prophylaxis enoxaparin 40 mg SC Pt has central line placed on 05/27/24 Critical care time spent 51 min Case discussed with Dr Chau Plan discussed with: Patient, Other (rn) My Orders My Orders Orders - TERRY MASTERS Procedure Category Date Status Time * Swallow Request ST 05/29/24 Transmitted 07:34 Transfer Orders XFER 05/29/24 Transmitted 09:30 Pureed DIET 05/29/24 Transmitted Dinner Ceftriaxone 2gm/50ml PHA 05/30/24 In Process D5w (Rocephin 2gm/5 10:00 Complete Blood Count LAB 05/30/24 Verified 04:00 Comprehensive LAB 05/30/24 Verified Metabolic Panel 04:00 Chest Xray 1 View XY 05/30/24 Logged 04:00 Dietary Evaluation Review Comments: 1. Consider EN or PN regime if NPO>5 days Expected Outcomes/Goals: 1. Pt will consume >75% of estimated needs within 2-3 days Date of Service: May 29, 2024 Billing Provider: BERTO CHAU MD Common Visit Codes: [id number] CARE 30-74 MIN TERRY MASTERS May 29, 2024 22:48 BERTO CHAU MD May 31, 2024 11:51
[2024-05-30] VITALS (16 sets, daily range): BP systolic 99–139; BP diastolic 68–87; PULSE 88–108; RESP 16–20; TEMP 98.8–99.8; O2SAT 91–100
--- NOTE | 2024-05-30 04:49 | DVH ---
CHEST RADIOGRAPH Indication:dyspnea Technique: Single frontal view of the chest was obtained Comparison: XY CHEST XRAY 1 VIEW on DOS: 05/29/24 FINDINGS: Lines and Tubes: Removal of the central venous catheter. Lungs: No focal consolidation. Pleura: No effusion. No pneumothorax. Cardiomediastinal contours: Unremarkable Bones: No acute osseous abnormality. IMPRESSION: 1. No acute cardiopulmonary disease.
[2024-05-30 06:12] LABS: Basophils # (auto) 0.1 10 ^3/uL (0-0.2); Basophils % (auto) 0.9 % (0.0-2.0); Eosinophils # (auto) 0.3 10 ^3/uL (0-0.8); Eosinophils % (auto) 3.7 % (0.0-7.0); Hematocrit 36.9 % (36.0-46.0); Hemoglobin 12.3 g/dL (12.2-16.2); Lymphocytes # (auto) 2.3 10 ^3/uL (0.4-5.4); Mean Corpuscular Hemoglobin 31.1 pg (28.0-32.0); Mean Corpuscular Hgb Conc. 33.2 g/dL (32.0-36.0); Mean Corpuscular Volume 93.6 fL (80.0-100.0); Monocytes # (auto) 0.8 10 ^3/uL (0-1.3); Neutrophils # (auto) 4.3 10 ^3/uL (1.6-8.6); Neutrophils % (auto) 55.4 % (37.0-80.0); Nucleated Red Blood Cells % 0.1 %; Platelet Count (auto) 363 10^3/uL (140-450); Red Blood Cells 3.94 10^6/uL (4.0-5.20); Red Cell Distribution Width 13.4 % (11.8-14.3); White Blood Cell 7.7 10^3/uL (4.4-10.8)
[2024-05-30 06:32] LABS: Alanine Aminotransferase 22 U/L (7-40); Albumin 4.6 g/dL (3.2-4.8); Alkaline Phosphatase 149 U/L (46-116); Anion Gap 11 (5-15); Aspartate Aminotransferase 23 U/L (13-40); BUN/Creatinine Ratio 10.5 (10.0-20.0); Blood Urea Nitrogen 6 mg/dL (9-23); Calcium 10.4 mg/dL (8.7-10.4); Carbon Dioxide 21 mmol/L (20-31); Chloride 103 mmol/L (98-107); Glucose 241 mg/dL (74-106); Potassium 3.4 mmol/L (3.5-5.1); Sodium 135 mmol/L (136-145)
[2024-05-30 06:33] LABS: Bilirubin, Total 0.4 mg/dL (0.2-1.0); Total Protein 7.9 g/dL (5.7-8.2)
[2024-05-30] MEDS: FOLIC ACID 1 MG in D5W 5% 50 ML INJ SCH (10:00)
[2024-05-30] MEDS: cefTRIAXone 2GM/50ML D5W 50 ML IV SCH (10:00)
[2024-05-30] MEDS: THIAMINE 100mg/ml INJ (200mg/2ml VIAL) IV SCH (10:07)
[2024-05-30] MEDS: POTASSIUM CHL 20MEQ/100ML 100 ML IV SCH (11:15)
--- NOTE | 2024-05-30 12:18 | DVHPNRES ---
Progress Note Date Seen: May 30, 2024 Resident Creating Document: TERRY MASTERS RESIDENT Medical Necessity Reason Pt with a Central, PICC or Fol: Yes The following are medically ne: Central Line, Verde Catheter Subjective Review of Systems A 39y old female with PMHx of MD and HTN who was found in 05/23/2024 unresponsive at a gas station BIBA and intubated immediately to protect the airway. Patient was admitted and it was found elevated WBC count, x ray with signs of possible aspiration pneumonia, diagnosed with septic shock and placed on vasopressor and on zosyn. Past medical history: Diabetes, hypertension, two previous admissions due to alcohol intoxication. Family history: Mother had diabetes and sudden cardiac at age of 52 Social history: [place] She is a heavy ethanol abuser, goes through binges (had stopped drinking for the last two months). Denies tobacco and other drug abuse Home medication: Metformin and antihypertensive medication which father can not recall Patient seen and examined at bedside. Patient is off vasopressors, sputum cultures came positive for group c streptococcus,extubation on may 28 , mild symptoms of alcohol withdrawal improving, stop zosyn start ceftriaxone Objective vital signs Vital Sign Date Time Temp Pulse Resp B/P (MAP) Pulse Ox O2 Delivery O2 Flow Rate FiO2 05/30/24 09:00 99.1 93 18 107/71 (83) 97 99.1 05/30/24 07:14 Room Air* 0 21 Total Intake and Output 05/29/24 05/29/24 05/30/24 15:00 23:00 07:00 Intake Total 100 ml 200 ml 200 ml Balance 100 ml 200 ml 200 ml medications Current Medications Medications Dose Ordered Sig/Janna Route Start Time Stop Time Status Last Admin Dose Admin Acetaminophen 650 mg Q6HP PRN [place] 05/23/24 22:15 05/28/24 08:23 650 MG Nitroglycerin 0.4 mg Q5MINP PRN SL 05/23/24 23:15 Morphine Sulfate 2 mg Q30M PRN IV 05/23/24 23:15 Chlordiazepoxide HCl 25 mg Q6HPRN PRN PO 05/25/24 13:00 05/30/24 00:35 25 MG Diagnostic Test (Pha) 1 strip Q6HR 05/26/24 18:00 05/30/24 05:45 1 STRIP Insulin Human Regular Q6HR SC 05/26/24 18:00 05/30/24 05:48 6 UNITS Dextrose 50 ml UD PRN IV 05/26/24 14:45 Pantoprazole Sodium 40 mg DAILY IV 05/27/24 10:00 05/30/24 10:07 40 MG Enoxaparin Sodium 40 mg DAILY SC 05/27/24 10:00 05/30/24 10:08 40 MG Albuterol 2.5 mg Q8HR NEB 05/27/24 14:00 05/30/24 07:14 2.5 MG Acetylcysteine 200 mg Q8HR NEB 05/28/24 06:00 05/30/24 14:00 05/30/24 07:15 200 MG Thiamine HCl 100 mg DAILY IV 05/30/24 10:00 05/30/24 10:07 100 MG Folic Acid 1 mg/ Dextrose 50.2 ml @ 200.8 mls/ hr DAILY INJ 05/30/24 10:00 Ceftriaxone Sodium/Dextrose 50 ml @ 50 mls/hr DAILY IV 05/30/24 10:00 05/30/24 10:00 50 MLS/HR Potassium Chloride 100 ml @ 50 mls/hr Q2H IV 05/30/24 09:15 05/30/24 13:14 Examination General: alert, mucosae are moist Cardiovascular: Normal S1 and S2. No murmurs, gallops or rubs Respiratory: Clear lung sounds on auscultation Abdomen: Soft, nontender, no organomegaly, normal bowel sounds MSK/skin: Mobilization of limbs cannot be evaluated. Skin is dry and warm Neurological: Orientation cannot be assessed. No apparent motor no sensitive deficits. Pupils are isocoric and reactive laboratory and microbiology Laboratory Tests 05/30/24 05:34 Test 05/30/24 05:34 Range/Units Serum Glucose 241 H 74-106 mg/dL Microbiology Date/Time Source Procedure Growth Status 05/26/24 19:24 Sputum Gram Stain - Final Complete 05/26/24 19:24 Sputum Respiratory Culture - Final Complete 05/24/24 15:16 Urine - [place] Urine Culture - Final Complete 05/24/24 13:41 Blood Blood Culture - Final NO GROWTH AFTER 5 DAYS OF INCUBATION. Complete 05/24/24 04:30 Nose MRSA Screen - Final Complete Problem List/Assessment/Plan Problem List/Assessment/Plan Neurology Patient is alert, talking, answer questions #Acute metabolic encephalopathy due to alcohol overdose improving #alcohol withdrawal imprving Librium PRN Head CT scan normal Cardiovascular off pressors at the moment xray much better today Essential hypertension soft BPs Respiratory Acute respiratory failure due to aspiration pneumonia extubation at 11: 24 am on May 28 Pt is on ceftriaxone, wbc is trending now cultures positive for group C streptococcus Nephrology Normal creatinine Endocrinology Diabetes type 2 hba1c 7.1 Moderate insulin sliding scale Hypokalemia 3.4 Potassium IV Infectious disease Septic shock due to possible aspiration pneumonia resolved wbc trending down continue ceftriaxone Goals of care full code PUD prophylaxis protonix 40 mg IV DVT prophylaxis enoxaparin 40 mg SC Pt has central line placed on 05/27/24 Time spent on care 26 min Case discussed with Dr Morse Plan discussed with: Patient, Other (rn) My Orders My Orders Orders - TERRY MASTERS RESIDENT Procedure Category Date Status Time Pureed DIET 05/29/24 Transmitted Dinner Ceftriaxone 2gm/50ml PHA 05/30/24 In Process D5w (Rocephin 2gm/5 10:00 Chest Xray 1 View XY 05/30/24 Resulted 04:00 Potassium Chl PHA 05/30/24 In Process 20meq/100ml 09:15 Dietary Evaluation Review Comments: 1. Consider EN or PN regime if NPO>5 days Expected Outcomes/Goals: 1. Pt will consume >75% of estimated needs within 2-3 days Date of Service: May 30, 2024 Billing Provider: ROBYN MORSE MD Common Visit Codes: [id number] INP/OBS CARE(HIGH) TERRY MASTERS RESIDENT May 30, 2024 12:18 ROBYN MORSE MD May 30, 2024 22:13
[2024-05-30] MEDS ORDERED: DEXTROSE (50%) 50ML SYRG IV PRN (13:00)
[2024-05-30] MEDS: POTASSIUM CHLORIDE 40 MEQ, LIDOCAINE 1% (LOCAL ANESTH.) 4 ML in SODIUM CHL 0.9% 250 ML IV ONE (17:00)
[2024-05-30] MEDS: ACCU-CHEK COMFORT CURVE STRIP VI SCH (18:13)
[2024-05-30] MEDS: InsuLIN REG 1unit/0.01ml Soln (100units/ml) SC SCH (18:13)
[2024-05-31] VITALS (11 sets, daily range): BP systolic 111–140; BP diastolic 72–86; PULSE 78–109; RESP 16–18; TEMP 98.3–98.9; O2SAT 94–100
[2024-05-31] MEDS: MORPHINE SULFATE INJ 2 MG/ml SYRG IV ONE (00:49)
--- NOTE | 2024-05-31 11:07 | DVHPNRES ---
Progress Note Date Seen: May 31, 2024 Medical Necessity Reason Pt with a Central, PICC or Fol: Yes The following are medically ne: Central Line, Verde Catheter Objective vital signs Vital Sign Date Time Temp Pulse Resp B/P (MAP) Pulse Ox O2 Delivery O2 Flow Rate FiO2 05/31/24 09:00 98.6 98 18 118/72 (87) 96 98.6 05/31/24 07:13 Room Air 05/31/24 07:13 0 21 Total Intake and Output 05/30/24 05/30/24 05/31/24 15:00 23:00 07:00 Intake Total 100.2 ml 620 ml 360 ml Balance 100.2 ml 620 ml 360 ml medications Current Medications Medications Dose Ordered Sig/Janna Route Start Time Stop Time Status Last Admin Dose Admin Acetaminophen 650 mg Q6HP PRN [place] 05/23/24 22:15 05/28/24 08:23 650 MG Nitroglycerin 0.4 mg Q5MINP PRN SL 05/23/24 23:15 Morphine Sulfate 2 mg Q30M PRN IV 05/23/24 23:15 Chlordiazepoxide HCl 25 mg Q6HPRN PRN PO 05/25/24 13:00 05/30/24 00:35 25 MG Pantoprazole Sodium 40 mg DAILY IV 05/27/24 10:00 05/31/24 10:20 40 MG Enoxaparin Sodium 40 mg DAILY SC 05/27/24 10:00 05/31/24 10:20 40 MG Albuterol 2.5 mg Q8HR NEB 05/27/24 14:00 05/31/24 07:13 2.5 MG Thiamine HCl 100 mg DAILY IV 05/30/24 10:00 05/31/24 10:20 100 MG Folic Acid 1 mg/ Dextrose 50.2 ml @ 200.8 mls/ hr DAILY INJ 05/30/24 10:00 05/31/24 10:23 200.8 MLS/HR Ceftriaxone Sodium/Dextrose 50 ml @ 50 mls/hr DAILY IV 05/30/24 10:00 05/31/24 10:21 50 MLS/HR Diagnostic Test (Pha) 1 strip Q6HR 05/30/24 18:00 05/31/24 05:39 1 STRIP Insulin Human Regular Q6HR SC 05/30/24 18:00 05/31/24 05:42 6 UNITS Dextrose 50 ml UD PRN IV 05/30/24 13:00 laboratory and microbiology Laboratory Tests 05/30/24 05:34 Test 05/30/24 05:34 Range/Units Serum Glucose 241 H 74-106 mg/dL Microbiology Date/Time Source Procedure Growth Status 05/26/24 19:24 Sputum Gram Stain - Final Complete 05/26/24 19:24 Sputum Respiratory Culture - Final Complete 05/24/24 15:16 Urine - [place] Urine Culture - Final Complete 05/24/24 13:41 Blood Blood Culture - Final NO GROWTH AFTER 5 DAYS OF INCUBATION. Complete 05/24/24 04:30 Nose MRSA Screen - Final Complete Problem List/Assessment/Plan Problem List/Assessment/Plan Hospital course: A 39-year-old female with a history of diabetes and hypertension was found unresponsive at a gas station on 05/23/2024 and was intubated to protect her airway. She was admitted with an elevated WBC count and an x-ray indicating possible aspiration pneumonia, diagnosed with septic shock, and treated with vasopressors and zosyn. Her past medical history includes two previous admissions for alcohol intoxication. She lives with her family in [place], is a heavy ethanol abuser, and denies tobacco and other drug use. Her home medications include metformin and an unspecified antihypertensive. Upon examination, she was off vasopressors, with sputum cultures positive for group C streptococcus. She was extubated on May 28, showing mild symptoms of alcohol withdrawal, and her treatment was switched from zosyn to ceftriaxone. patient was taken care in the ICU but now downgraded to telemetry floor level appropriately at clinical improvement. # heavy alcohol intoxication: with plasma level of alcohol 553.8, was found down inability to maintain respiration needing intubation. no bystander history available. Alcohol cessation counseling done bedside. # Acute metabolic encephalopathy due to alcohol overdose improving, Head CT scan normal # Alcohol withdrawal improving, Librium PRN # Septic shock aspiration pneumonia, resolved: Off pressors at the moment, X- ray much better compared to admission improving soft BPs, goal to keep a map over 65. On IV ceftriaxone Central line placed on 05/27/24 # history of Essential hypertension , op of antihypertensives # Acute hypoxic respiratory failure due to aspiration pneumonia, Extubation at 11:24 am on May 28, sputumCultures positive for group C streptococcus,Patient is on ceftriaxone, WBC is trending down # SAMMY due to VMN, resolved,Normal creatinine, avoid nephrotoxic # Diabetes type 2, HbA1c 7.1, Moderate insulin sliding scale # mild Hypokalemia: Replenished, follow labs # PUD prophylaxis: Protonix 40 mg IV # DVT prophylaxis: Enoxaparin 40 mg SC # General deconditioning, poor nutrition: Nutrition follow up, ICU myopathy. Physical therapy evaluation before discharge. Discussed with Dr. Morse Code status: Full code. Care discussion needed 41 minutes of discussion. Barriers to discharge: Patient grossly improved, discharge planning started. Social work input appreciated. Patient was found on the street unresponsive. My Orders My Orders Orders - LONDON PELAYO Procedure Category Date Status Time Complete Blood Count LAB 05/31/24 Logged 11:02 Comprehensive LAB 05/31/24 Logged Metabolic Panel 11:02 * [place] CONS 05/31/24 Verified Consult Dietary Evaluation Review Comments: 1. Consider EN or PN regime if NPO>5 days Expected Outcomes/Goals: 1. Pt will consume >75% of estimated needs within 2-3 days Laboratory Results Laboratory Tests 05/30/24 05:34 Urinalysis Test 05/23/24 19:10 Urine Color Colorless (Yellow) Urine Clarity Clear (Clear) Urine pH 5.5 (5.0-9.0) Urine Specific [place] 1.006 (1.001-1.035) Urine Protein Negative (Negative) Urine Ketones Negative (Negative) Urine Blood Negative /uL (Negative) Urine Nitrite Negative (Negative) Urine Bilirubin Negative (Negative) Urine Urobilinogen Normal mg/dL (Negative) Urine Leukocyte Esterase Negative /uL (Negative) Urine RBC <1 /hpf (0 - 4) Urine WBC None seen /hpf (0 - 5) Urine Squamous Epithelial Cells None seen /hpf (<5) Urine Bacteria None seen /hpf (None Seen) Urine Glucose 4+ mg/dL (Normal) H Microbiology Microbiology Date/Time Source Procedure Growth Status 05/26/24 19:24 Sputum Gram Stain - Final Complete 05/26/24 19:24 Sputum Respiratory Culture - Final Complete 05/24/24 15:16 Urine - [place] Urine Culture - Final Complete 05/24/24 13:41 Blood Blood Culture - Final NO GROWTH AFTER 5 DAYS OF INCUBATION. Complete 05/24/24 04:30 Nose MRSA Screen - Final Complete LONDON PELAYO RESIDENT May 31, 2024 11:07
--- NOTE | 2024-05-31 11:10 | MEDREC ---
[facility] Intervention Section I [facility] Intervention: Review courses of therapy (ANTIBIOTICS FOR 8 DAYS FOR PNEUMONIA. PATIENT IS STABLE AND CULTURES ARE NEGATIVE. PLEASE CONSIDER DISCONTINUE ANTIBIOTIC IF INFECTION IS NO MORE A CONCERN) [facility] May 31, 2024 11:10
[2024-05-31 11:35] LABS: Basophils # (auto) 0.1 10 ^3/uL (0-0.2); Basophils % (auto) 0.8 % (0.0-2.0); Eosinophils # (auto) 0.3 10 ^3/uL (0-0.8); Eosinophils % (auto) 3.5 % (0.0-7.0); Hematocrit 34.4 % (36.0-46.0); Hemoglobin 11.7 g/dL (12.2-16.2); Lymphocytes # (auto) 2.4 10 ^3/uL (0.4-5.4); Mean Corpuscular Hemoglobin 31.7 pg (28.0-32.0); Mean Corpuscular Hgb Conc. 34.1 g/dL (32.0-36.0); Monocytes # (auto) 0.6 10 ^3/uL (0-1.3); Monocytes % (auto) 8.7 % (0.0-12.0); Neutrophils # (auto) 4.1 10 ^3/uL (1.6-8.6); Nucleated Red Blood Cells % 0.1 %; Platelet Count (auto) 387 10^3/uL (140-450); Red Cell Distribution Width 13.3 % (11.8-14.3); White Blood Cell 7.5 10^3/uL (4.4-10.8)
[2024-05-31 11:53] LABS: Alanine Aminotransferase 25 U/L (7-40); Albumin 4.3 g/dL (3.2-4.8); Alkaline Phosphatase 114 U/L (46-116); Anion Gap 10 (5-15); Aspartate Aminotransferase 22 U/L (13-40); Bilirubin, Total 0.3 mg/dL (0.2-1.0); Blood Urea Nitrogen 6 mg/dL (9-23); Calcium 9.9 mg/dL (8.7-10.4); Carbon Dioxide 22 mmol/L (20-31); Chloride 101 mmol/L (98-107); Glucose 315 mg/dL (74-106); Potassium 3.6 mmol/L (3.5-5.1); Sodium 133 mmol/L (136-145); Total Protein 7.5 g/dL (5.7-8.2)
--- NOTE | 2024-05-31 16:25 | DVHDSRES ---
Discharge Summary Date of Admission Resident Creating Document: TERRY MASTERS RESIDENT May 23, 2024 at 23:14 Date of Discharge: May 31, 2024 Admitting Diagnosis Altered level of consciousness. Labs/Diagnostic Data: Laboratory Results Test 05/31/24 11:30 05/31/24 05:37 05/28/24 10:01 05/28/24 09:36 White Blood Count 7.5 10^3/uL (4.4-10.8) Red Blood Count 3.70 10^6/uL (4.0-5.20) Hemoglobin 11.7 g/dL (12.2-16.2) Hematocrit 34.4 % (36.0-46.0) Mean Corpuscular Volume 93.0 fL (80.0-100.0) Mean Corpuscular Hemoglobin 31.7 pg (28.0-32.0) Mean Corpuscular Hemoglobin Concent 34.1 g/dL (32.0-36.0) Red Cell Distribution Width 13.3 % (11.8-14.3) Platelet Count 387 10^3/uL (140-450) Mean Platelet Volume 8.3 fL (6.9-10.8) Neutrophils (%) (Auto) 55.0 % (37.0-80.0) Lymphocytes (%) (Auto) 32.0 % (10.0-50.0) Monocytes (%) (Auto) 8.7 % (0.0-12.0) Eosinophils (%) (Auto) 3.5 % (0.0-7.0) Basophils (%) (Auto) 0.8 % (0.0-2.0) Neutrophils # (Auto) 4.1 10 ^3/uL (1.6-8.6) Lymphocytes # (Auto) 2.4 10 ^3/uL (0.4-5.4) Monocytes # (Auto) 0.6 10 ^3/uL (0-1.3) Eosinophils # (Auto) 0.3 10 ^3/uL (0-0.8) Basophils # (Auto) 0.1 10 ^3/uL (0-0.2) Nucleated Red Blood Cells 0.1 % Sodium Level 133 mmol/L (136-145) Potassium Level 3.6 mmol/L (3.5-5.1) Chloride Level 101 mmol/L (98-107) Carbon Dioxide Level 22 mmol/L (20-31) Anion Gap 10 (5-15) Blood Urea Nitrogen 6 mg/dL (9-23) Creatinine 0.67 mg/dL (0.550-1.02) Glomerular Filtration Rate Calc 115 mL/min (>90) BUN/Creatinine Ratio 9.0 (10.0-20.0) Serum Glucose 315 mg/dL (74-106) Calcium Level 9.9 mg/dL (8.7-10.4) Total Bilirubin 0.3 mg/dL (0.2-1.0) Aspartate Amino Transferase (AST) 22 U/L (13-40) Alanine Aminotransferase (ALT) 25 U/L (7-40) Alkaline Phosphatase 114 U/L (46-116) Total Protein 7.5 g/dL (5.7-8.2) Albumin 4.3 g/dL (3.2-4.8) POC Glucose 208 mg/dl (70-106) Lactic Acid Level 0.9 mmol/L (0.4-2.0) Blood Gas Specimen Type Arterial Blood Gas Sample Site Right radial Blood Gas Patient Temperature 37.0 Arterial Blood Date Drawn [id number] Arterial Blood pH 7.410 (7.350-7.450) Arterial Blood Partial Pressure CO2 36.8 mmHg (32.0-45.0) Arterial Blood Partial Pressure O2 65.1 mmHg (83.0-108.0) Arterial Blood HCO3 22.8 mmol/L (21.0-28.0) Arterial Blood Oxygen Saturation 92.9 % (94.0-98.0) Arterial Blood Base Excess -1.5 mmol/L (-2.0-3.0) Arterial Blood Oxyhemoglobin 92.6 % (94.0-98.0) Arterial Blood Carboxyhemoglobin 0.1 % (0.5-1.5) Arterial Blood Methemoglobin 0.2 % (0.0-1.5) Aravind Test Modified Blood Gas Total Hemoglobin 10.50 g/dL (12.0-16.0) Blood Gas Modality Vent - cpap FiO2 % 30.0 Blood Gas Pressure Support 8 Blood Gas PEEP or CPAP 5.0 Test 05/28/24 03:00 05/27/24 06:14 05/24/24 10:26 05/24/24 07:13 Phosphorus Level 4.0 mg/dL (2.4-5.1) Magnesium Level 1.8 mg/dL (1.6-2.6) Blood Gas Set Respiration Rate 16.0 Blood Gas Tidal Volume 450.0 Prothrombin Time 11.7 sec (9.3-11.8) Prothrombin Time INR 1.11 (0.9-1.15) Activated Partial Thromboplast Time 25.9 SEC (24.5-34.5) Ammonia < 10 umol/L (11-32) Troponin I High Sensitivity 11 ng/L (</=34) Blood Gas Spontaneous Rate 19 Blood Gas Inspiratory Pressure 21.0 Bl Gas Inspiratory/Expiratory Ratio 1:2.2 Specimen Drawn By [facility] rt Test 05/24/24 03:44 05/23/24 19:10 05/23/24 16:23 B-Type Natriuretic Peptide 6.89 pg/mL (0-100) Triglycerides Level 376 mg/dL (< 150) Cholesterol Level 238 mg/dL (< 200) LDL Cholesterol 135 mg/dL (< 100) HDL Cholesterol 56 mg/dL (40-59) Vitamin B12 Level 359 pg/mL (211-911) Vitamin D 25-Hydroxy 37.2 ng/mL (30.0-100) Thyroid Stimulating Hormone (TSH) 0.70 uIU/mL (0.55-4.78) Urine Color Colorless (Yellow) Urine Clarity Clear (Clear) Urine pH 5.5 (5.0-9.0) Urine Specific [place] 1.006 (1.001-1.035) Urine Protein Negative (Negative) Urine Ketones Negative (Negative) Urine Blood Negative /uL (Negative) Urine Nitrite Negative (Negative) Urine Bilirubin Negative (Negative) Urine Urobilinogen Normal mg/dL (Negative) Urine Leukocyte Esterase Negative /uL (Negative) Urine RBC <1 /hpf (0 - 4) Urine WBC None seen /hpf (0 - 5) Urine Squamous Epithelial Cells None seen /hpf (<5) Urine Bacteria None seen /hpf (None Seen) Urine Glucose 4+ mg/dL (Normal) Urine Opiates Screen Neg (NEGATIVE) Urine Fentanyl Screen Neg (NEGATIVE) Urine Barbiturates Screen Neg (NEGATIVE) Urine Phencyclidine Screen Neg (NEGATIVE) Urine Amphetamines Screen Neg (NEGATIVE) Urine Benzodiazepines Screen Neg (NEGATIVE) Urine Cocaine Screen Neg (NEGATIVE) Urine Cannabinoids Screen Neg (NEGATIVE) Differential Total Cells Counted 100.0 (100) Neutrophils % (Manual) 31 (37.0-80.0) Band Neutrophils % (Manual) 0 Lymphocytes % (Manual) 65 (10.0-50.0) Monocytes % (Manual) 2 (0-12) Eosinophils % (Manual) 2 (0-7) Basophils % (Manual) 0 (0.0-2.0) Metamyelocytes % (manual) 0 Myelocytes % (Manual) 0 Promyelocytes % (Manual) 0 Blast Cells % (Manual) 0 Reactive Lymphocytes 0 Platelet Estimate Adequate Hemoglobin A1c 7.1 % A1C (<5.7) Plasma/Serum Blood Alcohol 553.8 mg/dL (<10) Other Laboratory Tests 05/31/24 11:30 Brief Hx & Hospital Course: Hospital course: Ms. Devine, a 39-year-old female with a history of diabetes and hypertension was [place] unresponsive [place] a gas station on 05/23/2024 and was intubated to protect her airway. She was admitted with an elevated WBC count and an x-ray indicating possible aspiration pneumonia, diagnosed with septic shock, and treated with vasopressors and zosyn. Her past medical history includes two previous admissions for alcohol intoxication. She lives with her family in [place], is a heavy ethanol abuser, and denies tobacco and other drug use. Her home medications include metformin and an unspecified antihypertensive. Upon examination, she was off vasopressors, with sputum cultures positive for group C streptococcus. She was extubated on May 28, showing mild symptoms of alcohol withdrawal, and her treatment was switched from zosyn to ceftriaxone. patient was taken care in the ICU but now downgraded to telemetry floor level appropriately at clinical improvement. Patient back to baseline. Patient's daughter at bedside, patient back to baseline. Medical conditions treated in hospital: # heavy alcohol intoxication: with plasma level of alcohol 553.8, was found down inability to maintain respiration needing intubation. no bystander history available. Alcohol cessation counseling done bedside. Perhaps the patient might be helpful with outpatient voluntary involvement with alcohol anonymous or alcohol rehabilitation programs. # Acute metabolic encephalopathy: due to alcohol overdose improving, Head CT scan normal, improved since then AAO x4 # Alcohol withdrawal improved on as needed Librium . # Septic shock aspiration pneumonia, resolved: Off pressors at the moment, X- ray much better compared to admission improving soft BPs, goal to keep a map over 65. On IV ceftriaxone Central line placed on 05/27/24 # history of Essential hypertension: off of antihypertensives blood pressure well controlled. # Acute hypoxic respiratory failure due to aspiration pneumonia: Needed intubation and ICU management. Extubation at 11:24 am on May 28, sputumCultures positive for group C streptococcus,Patient is on ceftriaxone, WBC is trending down # SAMMY due to VMN: resolved,Normal creatinine, avoid nephrotoxic # Diabetes type 2, HbA1c 7.1, Moderate insulin sliding scale # mild Hypokalemia: Replenished, follow labs # PUD prophylaxis: Protonix 40 mg IV, unlikely need to be continued # DVT prophylaxis: Enoxaparin 40 mg SC # General deconditioning, poor nutrition: Patient is encouraged for healthy diet, nutrition support, presumably patient is able to ambulate without any weakness. Discussed with Dr. Lebron Code status: Full code. Care discussion needed 41 minutes of discussion. Discharge planning needed 43 minutes of detailed discussion. Advice to follow up in discharge Clinic. Close follow up with the PCP afterwards. Patient agreeable to the plan. As per patient we will be able to go back home along with the help of daughter. Consults/Reason for consult pulmonology and critical Care cardiology Operations or Procedures EKG Name: THEODORE DEVINE Acct: [id number] [place] [address] ELECTROCARDIOGRAM REPORT PATIENT: THEODORE DEVINE ACCT: [id number] : 1985 LOC: [facility] ROOM / BED: [address] [place] [address] AGE / SEX: 39 / F ADM STATUS: ADM IN SERVICE 0800 UNIT: [id number] ORDERING PHYSICIAN: ABIGAIL JOSEPH RESIDENT PROCEDURE(s): EKG - ELECTROCARDIGRAM ORDER NUMBER(s): [id number], ACCESSION NUMBER(s): [id number] [facility] Test Date: 2024-05-24 Test Time: 10:34:14 Pat Name: THEODORE DEVINE Department: Room: [address] [place] [address] Gender: F 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 DICTATED BY:CHINTAN WONG MD DICTATED DATE/TIME:05/24/24 1034 ELECTRONICALLY SIGNED BY:CHINTAN WONG MD 05/26/24 1609 ELECTRONICALLY CO-SIGNED BY: [place] [id number] Ph: [phone] DIAGNOSTIC IMAGING Diagnostic Imaging Report : [id number] Signed PATIENT: THEODORE DEVINE ACCT: [id number] UNIT: [id number] : 1985 LOC: [facility] ROOM / BED: [address] [place] [address] AGE / SEX: 39 / F ADM STATUS: ADM IN SERVICE 0800 ORDERING PHYSICIAN: ABIGAIL JOSEPH RESIDENT PROCEDURE(s): ECIDC - ECHO 2D MODE CARDIAC DOP REASON: Hypotension ORDER NUMBER(s): [id number], ACCESSION NUMBER(s): [id number] APPROVED REPORT EXAM: Two-dimensional and M-mode echocardiogram with Doppler and color Doppler. Blood Pressure: 103/59 mmHg INDICATION Hypotension RISK FACTORS Height: 5' 4", Weight: 149 DIMENSIONS LVDd 4.0 (3.8-5.7cm) LA (2D) 3.2 (1.9-4.0cm) Aortic Root 2.6 (2.0- 3.7cm) LVDs 2.7 (2.5-4.0cm) LA (MM) (1.9-4.0cm) Aortic Cusp Exc 1.6 (1.5- 2.0cm) EF (%) 62.0 (55-70%) Rt. Atrium 3.2 (1.9-4.0cm) Asc. Aorta cm IVSd 0.9 (0.7-1.1cm) RV (D) (1.8-2.4cm) PWd 0.8 (0.7-1.1cm) Mitral Valve Mitral Mitral Stenosis E wave 0.70m/s MV Mean GR. mmHg A wave 0.60m/s MV Peak GR. mmHg E/A ratio 1.2 2D MVA cm2 Aortic Valve Aortic Valve Aortic Stenosis V1 1.00m/s AO Mean GR. 4mmHg V2 1.40m/s AO Peak GR. 9mmHg LVOT Diameter 2.0 (1.8-2.4cm) Doppler NELLA 2.24cm2 Pulmonic Valve V2 0.70m/s Conclusion Normal left ventricular size and dimension. Normal left ventricular systolic function estimated ejection fraction 55%. Normal diastolic function Normal right ventricular size and dimension. Normal right ventricular systolic function. Normal biatrial size and dimension. Normal aortic valve structure and function. Normal mitral valve structure and function. Normal tricuspid valve structure and function. The pulmonary valve is grossly normal. No pericardial effusion. SIGNED BY: CHINTAN WONG MD SIGNED DATE/TIME: 05/24/24 1406 CC: [place] [id number] Ph: [phone] DIAGNOSTIC IMAGING Diagnostic Imaging Report : [id number] Signed PATIENT: JULIA HALL ACCT: [id number] UNIT: [id number] : 05/23/1989 LOC: ER ROOM / BED: / AGE / SEX: 35 / F ADM STATUS: REG ER SERVICE 1600 ORDERING PHYSICIAN: ECTOR SAINI MD PROCEDURE(s): HWOCT - HEAD WITHOUT CONTRAST REASON: altered ORDER NUMBER(s): [id number], ACCESSION NUMBER(s): [id number] Exam: CT HEAD WITHOUT CONTRAST History: altered Technique: [address] images through the posterior fossa and the supratentorial compartment were acquired without contrast and imaged using soft tissue and bone algorithms. RADIATION DOSE: DLP 1016.47 mGy.cm; CTDI vol 57.41 mGy. Comparison: None Findings: There is no evidence of an intracranial hemorrhage, acute large vessel infarct, mass effect, or midline shift. The calvarium, orbits, paranasal sinuses, sella, middle ears, and mastoids are unremarkable. The superficial soft tissues are within normal limits. Impression: 1. No acute intracranial abnormality. ATED BY: MADELIN ENCISO DO DICTATED DATE/TIME: 05/23/241707 SIGNED BY: MADELIN ENCISO DO SIGNED DATE/TIME: 05/23/241707 CC: [place] [id number] Ph: [phone] DIAGNOSTIC IMAGING Diagnostic Imaging Report : [id number] Signed PATIENT: THEODORE DEVINE ACCT: [id number] UNIT: [id number] : 1985 [facility] AGE / SEX: 39 / F ADM STATUS: ADM IN SERVICE 9 ORDERING PHYSICIAN: TERRY MASTERS RESIDENT PROCEDURE(s): CXR1 - CHEST XRAY 1 VIEW REASON: dyspnea ORDER NUMBER(s): [id number], ACCESSION NUMBER(s): [id number] CHEST RADIOGRAPH Indication:dyspnea Technique: Single frontal view of the chest was obtained Comparison: XY CHEST XRAY 1 VIEW on DOS: 05/29/24 FINDINGS: Lines and Tubes: Removal of the central venous catheter. Lungs: No focal consolidation. Pleura: No effusion. No pneumothorax. Cardiomediastinal contours: Unremarkable Bones: No acute osseous abnormality. IMPRESSION: 1. No acute cardiopulmonary disease. ATED BY: STORMY ARMSTRONG MD DICTATED DATE/TIME: 05/30/24446 SIGNED BY: STORMY ARMSTRONG MD SIGNED DATE/TIME: 05/30/24446 CC: Condition at Discharge: Fair Final Diagnosis/Problems List # heavy alcohol intoxication # Acute metabolic / toxic encephalopathy, improved # Alcohol withdrawal improved on as needed Librium # Septic shock aspiration pneumonia, resolved # history of Essential hypertension # Acute hypoxic respiratory failure due to aspiration pneumonia improved. # SAMMY due to VMN Resolved. # Diabetes type 2, HbA1c 7.1 . # mild Hypokalemia Improved. # General deconditioning, poor nutrition Needing nutritional support. Discharge Disposition: Home Discharge Instruct/Medications Diet: Consistent carbohydrate, Cardiac 2g Na,low cholest Activity: No Restrictions, As Tolerated Follow Up/Referral: Please follow up with discharge Clinic within 1-2 weeks. Please establish care and follow up closely with your primary care physician Referral/follow up with the psychiatric care might help you to manage your emotions and alcohol-related issues. Medications: As per MAR Continue home medications Discharge Statement: "Patient was advised to return to the ER or call 911 if any headaches, dizziness, shortness of breath, chest pain, abdominal pain, bleeding, fevers, or worsening of medical condition. Patient was counseled about treatment plan, medications, possible side effects, patientverbalized understanding. All questions were answered to the best of my ability. This discharge took greater then 30 minutes in planning, reviewing documentation, counseling the patient, and discussing with other team members." ASSESSMENT ASSESSMENT Assessment Date of Service: May 31, 2024 Billing Provider: ROBYN LEBRON MD Common Visit Codes: 51170-DPM/OBS DISCH DAY >30min LONDON PELAYO RESIDENT May 31, 2024 16:25 ROBYN LEBRON MD May 31, 2024 19:56
== END 2024-05-31 19:01 | disposition home or self-care (01) | DRG 720 ==
LOC: EDBD 15:24 → ER 15:24 → TELE 23:14 → ICU WEST 05-24 04:05 → TELE-EAST 05-29 23:39
PROVIDERS: ADMIT Internal Medicine; ATTEND Internal Medicine
PROC: 0BH17EZ Insertion of Endotracheal Airway into Trachea, Via Natural or Artificial Opening (ICD-10-PCS; principal; 2024-05-23)
PROC: 5A1955Z Respiratory Ventilation, Greater than 96 Consecutive Hours (ICD-10-PCS; 2024-05-23)
DX: A41.9 Sepsis, unspecified organism (principal); J96.01 Acute respiratory failure with hypoxia; N17.0 Acute kidney failure with tubular necrosis; J69.0 Pneumonitis due to inhalation of food and vomit; R65.21 Severe sepsis with septic shock; G92.8 Other toxic encephalopathy; E87.20 Acidosis, unspecified; J18.9 Pneumonia, unspecified organism; T51.91XA Toxic effect of unspecified alcohol, accidental (unintentional), initial encounter; E11.65 Type 2 diabetes mellitus with hyperglycemia; E87.6 Hypokalemia; I10 Essential (primary) hypertension; F10.129 Alcohol abuse with intoxication, unspecified; F10.139 Alcohol abuse with withdrawal, unspecified; Z83.3 Family history of diabetes mellitus; Z91.199 Patient's noncompliance with other medical treatment and regimen due to unspecified reason; Y90.8 Blood alcohol level of 240 mg/100 ml or more
CPT/HCPCS: 36415; 36600; 70450; 71045; 80048; 80053; 80061; 80307; 80320; 81001; 82140; 82306; 82607; 82805; 82962; 83036; 83605; 83735; 83880; 84100; 84132; 84443; 84484; 85007; 85025; 85027; 85610; 85730; 87040; 87070; 87081; 87086; 87205; 92610; 93005; 93306; 94002; 94003; 94640; 97116; 97163; 97530; 99291; G0378; J0131; J1815; J2003; J2470; J2543; J3480; J7060

== ENCOUNTER 2024-11-30 15:10 | Emergency (ER) | payer MEDICAID ==
[~2024-11-30] VITALS: Ht 152.4 cm; Wt 61.0 kg
[2024-11-30 15:40] VITALS: BP 148/91; PULSE 122; RESP 16; TEMP 98.1; O2SAT 96
--- NOTE | 2024-11-30 16:10 | ED.PDOC ---
History of Present Illness HPI Comments 39F presents to the Er w/ no shoes on and w/ prior MHx of DM, Neuropathy, HTN;SHx of left wrist Sx. pt reports that she was awoken by some bystanders and taken to the hospital. Pt notes that she has been drinking alcohol today. Social Hx of Occasional alcohol use, but denies tobacco and substance use. Denies chills, fever, N/V/D, SOB, CP, SI. No other associated symptoms, modifiers, recent injuries or sick contacts present at this time. Adamantly denies any suicidal or homicidal thoughts. No hallucinations. States she is here for blood work for a checkup and then wants to leave. I interviewed the patient in private and asked her if she feels safe at home living with her father or if she has any other safety concerns and she stated no and that she feels safe and wants to be discharged to go be with her father. 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 History: Unknown Family History Family History: Reviewed,noncontributory to illness, Unknown Social History Smoker: Unknown Alcohol: Occasionally Drugs: Unknown Lives In: Unknown Constitutional: denies: chills, diaphoresis, fatigue, fever, malaise, sweats, weakness, others EENTM: denies: blurred vision, double vision, ear bleeding, ear discharge, ear drainage, ear pain, ear ringing, eye pain, eye redness, hearing loss, mouth pain, mouth swelling, nasal discharge, nose bleeding, nose congestion, nose pain, photophobia, tearing, throat pain, throat swelling, voice changes, others Respiratory: denies: cough, hemoptysis, orthopnea, SOB at rest, shortness of breath, SOB with excertion, stridor, wheezing, others Cardiovascular: denies: chest pain, dizzy spells, diaphoresis, Dyspnea on exertion, edema, irregular heart beat, left arm pain, lightheadedness, palpitations, PND, syncope, others Gastrointestinal: denies: abdomen distended, abdominal pain, blood streaked bowels, constipated, diarrhea, dysphagia, difficulty swallowing, hematemesis, m jeramy, nausea, poor appetite, poor fluid intake, rectal bleeding, rectal pain, vomiting, others Genitourinary: denies: abnormal vagina bleeding, burning, dyspareunia, dysuria, flank pain, frequency, hematuria, incontinence, pain, , vagina discharge, urgency, others Neurological: denies: dizziness, fainting, headache, left sided numbness, left sided weakness, numbness, paresthesia, pre-existing deficit, right sided numbness, right sided weakness, seizure, speech problems, tingling, tremors, weakness, others Musculoskeletal: denies: back pain, gout, joint pain, joint swelling, muscle pain, muscle stiffness, neck pain, others Integumetry: denies: bruises, change in color, change in hair/nails, dryness, laceration, lesions, lumps, rash, wounds, others Allergic/Immunocompromised: denies: Difficulty Healing, Frequent Infections, Hives, Itching, others Hematologic/Lymphatic: denies: anemia, blood clots, easy bleeding, easy bruising, swollen glands, others Endocrine: denies: excessive hunger, excessive sweating, excessive thirst, excessive urination, flushing, intolerance to cold, intolerance to heat, unexpla ined weight gain, unexplained weight loss, others Psychiatric: reports: anxiety; denies: bipolar disorder, depression, hopeless, panic disorder, schizophrenia, sleepless, suicidal, others All Other Systems: Reviewed and Negative (ROS negative except as per noted in HPI) Physical Exam General Appearance: No Apparent Distress, Normal, Other (Cries intermittently during interview but overall answers questions appropriately, ambulates with a steady gait, appears well-developed and well-nourished, and in no distress. Denies suicidal or homicidal thoughts. Does not appear to be responding to internal stimuli.) HEENT: Normal ENT Inspection, Pharynx Normal, TMs Normal Neck: Full Range of Motion, Non-Tender, Normal, Normal Inspection Respiratory: Chest Non-Tender, Lungs Clear, No Accessory Muscle Use, No Respiratory Distress, Normal Breath Sounds Cardiovascular: No Edema, No JVD, No Murmur, No Gallop, Normal Peripheral Pulses, Regular Rate/Rhythm Breast Exam: Deferred Gastrointestinal: No Organomegaly, Non Tender, No Pulsatile Mass, Normal Bowel Sounds, Soft Genitalia: Deferred Pelvic: Deferred Rectal: Deferred Extremities: No calf tenderness, Normal capillary refill, Normal inspection, Normal range of motion, Non-tender, No pedal edema Musculoskeletal : Apperance: Normal Neurologic: Alert, design intern II-XII nml as Tested, No Motor Deficits, Normal Affect, Normal Mood, No Sensory Deficits Cerebellar Function: Normal Reflexes: Normal Skin: Dry, Normal Color, Warm Lymphatic: No Adenopathy Was a procedure done? Was a procedure done?: No Differential Dx Considerations may include: Alcohol intoxication, substance abuse, suicidal or homicidal thoughts, hallucinations, psychiatric illness X-Ray, Labs, Meds, VS Vital Signs Date Time Temp Pulse Resp B/P (MAP) Pulse Ox O2 Delivery O2 Flow Rate FiO2 11/30/24 15:40 98.1 122 16 148/91 (110) 96 98.1 Lab Test 11/30/24 18:50 11/30/24 16:15 11/30/24 15:47 Range/Units Urine Test Negative Negative Urine Opiates Screen Neg NEGATIVE Urine Fentanyl Screen Neg NEGATIVE Urine Barbiturates Screen Neg NEGATIVE Urine Phencyclidine Screen Neg NEGATIVE Urine Amphetamines Screen Pos NEGATIVE Urine Benzodiazepines Screen Neg NEGATIVE Urine Cocaine Screen Neg NEGATIVE Urine Cannabinoids Screen Neg NEGATIVE White Blood Count 11.0 H 4.4-10.8 10^3/uL Red Blood Count 5.25 H 4.0-5.20 10^6/uL Hemoglobin 15.9 12.2-16.2 g/dL Hematocrit 47.9 H 36.0-46.0 % Mean Corpuscular Volume 91.2 80.0-100.0 fL Mean Corpuscular Hemoglobin 30.3 28.0-32.0 pg Mean Corpuscular Hemoglobin Concent 33.2 32.0-36.0 g/dL Red Cell Distribution Width 14.1 11.8-14.3 % Platelet Count 352 140-450 10^3/uL Mean Platelet Volume 9.3 6.9-10.8 fL Neutrophils (%) (Auto) 58.7 37.0-80.0 % Lymphocytes (%) (Auto) 35.0 10.0-50.0 % Monocytes (%) (Auto) 4.0 0.0-12.0 % Eosinophils (%) (Auto) 1.4 0.0-7.0 % Basophils (%) (Auto) 0.9 0.0-2.0 % Neutrophils # (Auto) 6.5 1.6-8.6 10 ^3/uL Lymphocytes # (Auto) 3.9 0.4-5.4 10 ^3/uL Monocytes # (Auto) 0.4 0-1.3 10 ^3/uL Eosinophils # (Auto) 0.2 0-0.8 10 ^3/uL Basophils # (Auto) 0.1 0-0.2 10 ^3/uL Nucleated Red Blood Cells 0.0 % Sodium Level 137 136-145 mmol/L Potassium Level 4.0 3.5-5.1 mmol/L Chloride Level 100 98-107 mmol/L Carbon Dioxide Level 16 L 20-31 mmol/L Anion Gap 21 H 5-15 Blood Urea Nitrogen 7 L 9-23 mg/dL Creatinine 0.80 0.550-1.02 mg/dL Glomerular Filtration Rate Calc 97 >90 mL/min BUN/Creatinine Ratio 8.8 L 10.0-20.0 Serum Glucose 327 H 74-106 mg/dL Calcium Level 11.0 H 8.7-10.4 mg/dL Plasma/Serum Blood Alcohol 239.3 H <10 mg/dL Salicylates Level < 3.0 -30 mg/dL Acetaminophen Level < 2.0 L 10.0-20.0 UG/ML X-Ray, Labs, Meds, VS Comment 39-year-old female here today requesting a check up. Endorses alcohol use prior to arrival. Denies any suicidal or homicidal thoughts. States she feels safe at home and has no concerns about her safety when interviewed alone and in private. Denies any substance abuse inside from alcohol. States she does not drink every day and has no history withdrawals. No seizures. Workup overall notable for urine with amphetamine positive and elevated alcohol level. Patient also noted to have an anion gap, hyperglycemia to the 300s, and a decreased bicarbonate level. Concern for developing DKA/starvation ketosis. Plan was made to provide the patient with IV fluids and insulin however the patient el oped from the waiting room prior to allowing this to be done. Repeated phone call attempts with no answer. Voicemail left with call back number. Time of 1ST Reevaluation: 16:20 Reevaluation 1ST: Unchanged Patient Education/Counseling: Diagnosis, Treatment, Prognosis, Need For Follow Up Family Education/Counseling: No Family Present Departure 1 Departure Time of Disposition: 21:41 Impression: Primary Impression: DKA (diabetic ketoacidosis) Additional Impressions: Alcohol intoxication Amphetamine abuse Disposition: 07 LEFT AWOL/ELOPED Condition: Serious e-Prescriptions Unable to Obtain Active Prescriptions or Reported Meds Critical Care Note Critical Care Time?: Yes (30 min-critical care time only) Stability Stability form required: No Heart Score Heart Score: Heart Score Response (Comments) Value History N/A 0 EKG N/A 0 Age N/A 0 Risk Factors N/A 0 Troponin N/A 0 Total 0 I personally scribed for HEAVEN GIPSON MD ([email or web address]) on 11/30/24 at 16:10. Electronically submitted by Lior Waldrop ([email or web address]). HEAVEN GIPSON MD November 30, 2024 16:10
[2024-11-30 16:47] LABS: Basophils # (auto) 0.1 10 ^3/uL (0-0.2); Basophils % (auto) 0.9 % (0.0-2.0); Eosinophils # (auto) 0.2 10 ^3/uL (0-0.8); Eosinophils % (auto) 1.4 % (0.0-7.0); Hematocrit 47.9 % (36.0-46.0); Hemoglobin 15.9 g/dL (12.2-16.2); Lymphocytes # (auto) 3.9 10 ^3/uL (0.4-5.4); Mean Corpuscular Hemoglobin 30.3 pg (28.0-32.0); Mean Corpuscular Hgb Conc. 33.2 g/dL (32.0-36.0); Mean Corpuscular Volume 91.2 fL (80.0-100.0); Monocytes # (auto) 0.4 10 ^3/uL (0-1.3); Neutrophils # (auto) 6.5 10 ^3/uL (1.6-8.6); Neutrophils % (auto) 58.7 % (37.0-80.0); Platelet Count (auto) 352 10^3/uL (140-450); Red Blood Cells 5.25 10^6/uL (4.0-5.20); Red Cell Distribution Width 14.1 % (11.8-14.3)
[2024-11-30 17:01] LABS: Acetaminophen < 2.0 UG/ML (10.0-20.0); Salicylate < 3.0 mg/dL (-30)
[2024-11-30 17:58] LABS: Chloride 100 mmol/L (98-107); Sodium 137 mmol/L (136-145)
[2024-11-30 17:59] LABS: Anion Gap 21 (5-15)
[2024-11-30 18:05] LABS: BUN/Creatinine Ratio 8.8 (10.0-20.0)
[2024-11-30 18:08] LABS: Blood Urea Nitrogen 7 mg/dL (9-23); Carbon Dioxide 16 mmol/L (20-31); Glucose 327 mg/dL (74-106)
[2024-11-30 19:34] LABS: Amphetamine Screen, Urine Pos (NEGATIVE); Barbiturate Scree,Urine Neg (NEGATIVE); Benzodiazephine Screen, Urine Neg (NEGATIVE); Cannabinoid Screen, Urine Neg (NEGATIVE); Cocaine Screen, Urine Neg (NEGATIVE); Opiate Scree,Urine Neg (NEGATIVE); Phencyclidine Screen, Urine Neg (NEGATIVE)
[2024-11-30] MEDS ORDERED: SODIUM CHLORIDE 0.9% 1,000 ML IV ONE (22:30)
== END 2024-11-30 22:03 | disposition left against medical advice (07) ==
LOC: ER 15:10
DX: E11.10 Type 2 diabetes mellitus with ketoacidosis without coma (principal); E11.40 Type 2 diabetes mellitus with diabetic neuropathy, unspecified; F10.129 Alcohol abuse with intoxication, unspecified; F15.10 Other stimulant abuse, uncomplicated; I10 Essential (primary) hypertension; Y90.7 Blood alcohol level of 200-239 mg/100 ml
CPT/HCPCS: 36415; 80048; 80307; 80320; 80329; 81025; 85025